=== PATIENT | male | born 1960 | race Hispanic/Latino ===

== ENCOUNTER 2017-04-05 21:01 | Observation (INO) | payer BC ==
[2017-04-05] MEDS ORDERED: Sodium Chloride 0.9% 1,000 ML IV ONE (21:14)
[2017-04-05 21:15] VITALS: BMI 37.3
[2017-04-05 21:18] VITALS: TEMP 97.6; O2SAT 97
--- NOTE | 2017-04-05 21:21 | C.PDOC ---
History Of Present Illness Patient BIBA for possible narcotic overdose. Apparently patient's roommate call 911 after patient fell at home, looking lethargic. 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 Patient given 0.8mg Narcan in the field asnd responded. He arrives to ED appearing drowsy but awake , states he got what he thought was fentanyl or dilaudid from work and injected it himself, admits to doing this previously. Time Seen by Provider: 04/05/17 21:04 Chief Complaint (Nursing): Substance Abuse History Per: EMS History/Exam Limitations: clinical condition Onset/Duration Of Symptoms: Unknown Modifying Factor(s): Narcotics Severity: Moderate Involuntary Hold By: Emergency Physician Past Medical History Reviewed: Historical Data, Nursing Documentation, Vital Signs Vital Signs: Last Vital Signs Temp 97.6 F 04/05/17 21:11 Pulse 50 L 04/06/17 01:13 Resp 16 04/06/17 01:13 BP 125/75 04/06/17 01:13 Pulse Ox 97 04/06/17 02:14 - Medical History PMH: HTN Surgical History: No Surg Hx - [facility] Procedures RESECTION OF APPENDIX, PERCUTANEOUS ENDOSCOPIC APPROACH (12/10/15) Family History: States: Unknown Family Hx - Social History Hx Alcohol Use: No Hx Substance Use: No - Immunization History Hx Tetanus Toxoid Vaccination: Yes Hx Influenza Vaccination: Yes Hx Pneumococcal Vaccination: Yes Review Of Systems Except As Marked, All Systems Reviewed And Found Negative. Cardiovascular: Negative for: Chest Pain, Palpitations Respiratory: Positive for: Cough. Negative for: Shortness of Breath Gastrointestinal: Negative for: Nausea, Vomiting, Abdominal Pain, Diarrhea Psych: Positive for: Other (fentanyl/dilaudid use) Physical Exam - Physical Exam Appears: Well, Non-toxic, Other (awake, alert, drowsy appearing ) Skin: Other (multiple track meehan/injection sites notes on B/L lower extremities ) Head: Atraumatic, Normacephalic Eye(s): bilateral: PERRL (approx 4-5mm B/L and sluggish (after narcan)), EOMI Oral Mucosa: Moist Cardiovascular: Rhythm Regular Respiratory: Normal Breath Sounds, No Rales, No Rhonchi, No Wheezing Gastrointestinal/Abdominal: Normal Exam, Bowel Sounds, Soft, No Tenderness Neurological/Psych: Other (awake, alert, drowsy/under influence, moving all 4 extremities spontaneously) ED Course And Treatment - Laboratory Results Result Diagrams: 04/05/17 21:55 04/05/17 21:55 ECG: Interpreted By Me, Viewed By Me (sinus bradycardia 54 bpm, normal axis, RBBB, no acute ST/T wave changes) ECG Interpretation: No Acute Changes O2 Sat by Pulse Oximetry: 97 (RA) Pulse Ox Interpretation: Normal Progress Note: Blood work, UA, UDS, EKG ordered and reviewed. Patient given IV NS bolus & placed in ED observation. 12:10am- Patient reassessed, arousable to verbal stimuli, vitals stable. Pending sobriety/reassessment. 2:15am - Patient is currently AAOx3, ambulating normally in the ED. He is clinically sober at this time, and requesting to be discharged. He denies SI/HI, depression. Patient instructed to follow up with PMD/clinic in 1-2 days, and understands he should return to ED if he develops any concerning symptoms. Reevaluation Time: 02:15 Reassessment Condition: Improved Disposition Counseled Patient/Family Regarding: Studies Performed, Diagnosis, Need For Followup - Disposition Disposition: HOME/ ROUTINE Disposition Time: 02:15 Condition: STABLE - POA Present On Arrival: None - Clinical Impression Clinical Impression: Narcotic drug use
[2017-04-05 21:59] LABS: BASO % 0.4 % (0.0-2.0); EOS # 0.3 K/uL (0.0-0.7); EOS % 3.2 % (0.0-4.0); HEMATOCRIT 43.5 % (35.0-51.0); LYMPH # 2.7 K/uL (1.0-4.3); LYMPH % 32.4 % (20.0-40.0); MEAN CELL VOLUME 86.9 fL (80.0-94.0); MEAN CORPUSCULAR HEMOGLOBIN 28.9 pg (27.0-31.0); MEAN CORPUSCULAR HGB CONC 33.2 g/dL (33.0-37.0); MEAN PLATELET VOLUME 7.7 fL (7.2-11.7); MONO # 0.6 K/uL (0.0-0.8); MONO % 6.9 % (0.0-10.0); RED CELL DISTRIBUTION WIDTH 13.8 % (11.5-14.5); WHITE BLOOD COUNT 8.3 K/uL (4.8-10.8)
[2017-04-05 22:10] LABS: ALB/GLOB RATIO 1.3 (1.0-2.1); ALCOHOL SERUM < 10 mg/dl (0-10); ALKALINE PHOSPHATASE 61 U/L (38-126); ALT/SGPT 35 U/L (21-72); AST/SGOT 27 U/L (17-59); BILIRUBIN,TOTAL 0.5 mg/dL (0.2-1.3); BLOOD UREA NITROGEN 24 mg/dL (9-20); CALCIUM 9.6 mg/dl (8.6-10.4); CARBON DIOXIDE 28 mmol/L (22-30); CHLORIDE 95 mmol/L (98-107); GFR AFRICAN-AMERICAN > 60; GLUCOSE,RANDOM 94 mg/dL (75-110); POTASSIUM 3.4 mmol/L (3.6-5.2); SODIUM 136 mmol/L (132-148); TOTAL PROTEIN 6.8 g/dL (6.3-8.3)
[2017-04-05 22:11] LABS: RBC URINE < 1 /hpf (0-3); URINE BILIRUBIN NEGATIVE (NEGATIVE); URINE BLOOD NEGATIVE (NEGATIVE); URINE COLOR Yellow (YELLOW); URINE GLUCOSE (UA) 1+ mg/dL (Normal); URINE KETONE NEGATIVE (NEGATIVE); URINE LEUKOCYTE ESTERASE NEG Leu/uL (Negative); URINE PROTEIN NEGATIVE (NEGATIVE); URINE UROBILINOGEN NORMAL mg/dL (0.2-1.0)
[2017-04-06 01:35] VITALS: BP 125/75; PULSE 50; RESP 16
--- NOTE | 2017-04-10 18:52 | CARD ---
APPROVED REPORT EKG Measurement Heart [id number] HI [id number] <Conclusion> Sinus bradycardia Incomplete right bundle branch block Abnormal ECG
== END 2017-04-06 02:16 | disposition home or self-care (01) ==
LOC: C.ER 21:01 → C.9OBSV 22:46
PROVIDERS: ADMIT Emergency Medicine; ATTEND Emergency Medicine
DX: F11.10 Opioid abuse, uncomplicated (principal); R53.83 Other fatigue; R40.0 Somnolence; I10 Essential (primary) hypertension
CPT/HCPCS: 80053; 81001; 85025; 96360; 99284; G0378; G0480

== ENCOUNTER 2018-07-11 02:09 | Inpatient (IN) | payer BC, MEDICAID ==
[2018-07-11 02:09] VITALS: BMI 37.3
[2018-07-11] MEDS ORDERED: Heparin25000 units/250ml 1/2NS 25,000 UNITS/250 ML BAG IV PRN (02:18)
[2018-07-11] MEDS ORDERED: Morphine 4 MG/ML VIAL ONE (02:20)
--- NOTE | 2018-07-11 02:21 | C.PDOC ---
History Of Present Illness patient woke up with severe chest pain, diaphoretic, Pt is non compliant with his bp meds and still smokes. No acls was available, Pt did receive 324 mg asa en route. Time Seen by Provider: 07/11/18 02:18 Chief Complaint (Nursing): Chest Pain History Per: Patient History/Exam Limitations: no limitations Onset/Duration Of Symptoms: Hrs Current Symptoms Are (Timing): Still Present Context: Other Severity: Severe Pain Scale Rating Of: 9 Quality: Sharp, Tightness, Pressure Associated Symptoms: Nausea Modifying Factors: None Alleviating Factors: None Recent travel outside of the [place]: No Additional History Per: Patient Past Medical History Reviewed: Historical Data, Nursing Documentation, Vital Signs - Medical History PMH: HTN Denies: Chronic Kidney Disease - [facility] Procedures RESECTION OF APPENDIX, PERCUTANEOUS ENDOSCOPIC APPROACH (12/10/15) Family History: States: No Known Family Hx - Social History Hx Alcohol Use: No Hx Substance Use: No - Immunization History Hx Tetanus Toxoid Vaccination: Yes Hx Influenza Vaccination: Yes Hx Pneumococcal Vaccination: Yes Review Of Systems Constitutional: Positive for: Sweats. Negative for: Fever, Chills Eyes: Negative for: Vision Change ENT: Negative for: Throat Pain Cardiovascular: Positive for: Chest Pain Respiratory: Negative for: Shortness of Breath Gastrointestinal: Positive for: Nausea. Negative for: Abdominal Pain Genitourinary: Negative for: Dysuria Musculoskeletal: Negative for: Back Pain Skin: Negative for: Rash Neurological: Negative for: Weakness Psych: Negative for: Anxiety Physical Exam - Physical Exam Appears: In Acute Distress Skin: Diaphoretic, Pale Head: Normacephalic Eye(s): bilateral: Normal Inspection Oral Mucosa: Moist Neck: Supple Chest: Symmetrical Cardiovascular: Rhythm Regular Respiratory: No Rales, Rhonchi, No Wheezing Back: Normal Inspection Extremity: Normal ROM Extremity: Bilateral: Atraumatic Pulses: Left Dorsalis Pedis: Normal, Right Dorsalis Pedis: Normal Neurological/Psych: Oriented x3 Gait: Unable To Assess ED Course And Treatment - Laboratory Results Result Diagrams: 07/11/18 02:22 12 02:22 ECG: Interpreted By Me, Viewed By Me ECG Rhythm: Sinus Rhythm, ST/T Changes (ant lat mi) O2 Sat by Pulse Oximetry: 94 Pulse Ox Interpretation: Normal - Radiology CXR: Interpreted by Me, Viewed By Me CXR Interpretation: Yes: Other (acute pulm edema). No: Infiltrates, Fracture Progress Note: 2:[address] ross and sent ekg - code heart activated. 2:20 pt feels slightly better, less diaphoretic. spoke with dr farley -admit to hospitalist Critical Care Time - Critical Care Note Total Time (in mins): 30 Documented critical care: time excludes all time spent performing seperately billable procedures. Disposition Discussed With DrEliseo: Myron Heard Comment: accepted the pt on his service and took over the care at 2:50 AM Doctor Will See Patient In The: ED Counseled Patient/Family Regarding: Studies Performed, Diagnosis - Disposition Referrals: Miguel Farley MD [Primary Care Provider] - Disposition: HOSPITALIZED Disposition Time: 02:18 Condition: CRITICAL Forms: [facility] (Spanish) - POA Present On Arrival: Poor Glycemic Control - Clinical Impression Clinical Impression: Acute IN Decision To Admit - Pt Status Changed To: Hospital Disposition Of: Inpatient - Admit Certification Admit to Inpatient:: After my assessment, the patient will require hospitalization for at least two midnights. This is because of the severity of symptoms shown, intensity of services needed, and/or the medical risk in this patient being treated as an outpatient. - InPatient: Physician Admission Certification: I certify that this patient requires 2 or more midnights of care for the following reason:: After my assessment, the patient will require hospitalization for at least two midnights. This is becaus e of the severity of symptoms shown, intensity of services needed, and/or the medical risk in this patient being treated as an outpatient. - . Bed Request Type: ICU Admitting Physician: Myron Heard Patient Diagnosis: Acute IN
[2018-07-11 02:27] LABS: BASO # 0.1 K/uL (0.0-0.2); BASO % 0.8 % (0.0-2.0); EOS # 0.3 K/uL (0.0-0.7); EOS % 2.9 % (0.0-4.0); HEMOGLOBIN 17.3 g/dL (12.0-18.0); LYMPH # 3.7 K/uL (1.0-4.3); MEAN CELL VOLUME 88.6 fL (80.0-94.0); MEAN CORPUSCULAR HEMOGLOBIN 29.9 pg (27.0-31.0); MEAN CORPUSCULAR HGB CONC 33.7 g/dL (33.0-37.0); MEAN PLATELET VOLUME 7.7 fL (7.2-11.7); MONO # 0.9 K/uL (0.0-0.8); MONO % 8.4 % (0.0-10.0); NEUT # 5.8 K/uL (1.8-7.0); NEUT % 53.9 % (50.0-75.0); RBC 5.78 Mil/uL (4.40-5.90); RED CELL DISTRIBUTION WIDTH 14.3 % (11.5-14.5); WHITE BLOOD COUNT 10.8 K/uL (4.8-10.8)
[2018-07-11 02:34] LABS: PROTHROMBIN TIME 11.1 SECONDS (9.7-12.2)
[2018-07-11] MEDS ORDERED: Nitroglycerin 50mg in D5W 50 MG/250 ML BOTTLE IV ONE ×2 (02:35→04:16)
[2018-07-11 02:40] LABS: ALB/GLOB RATIO 1.5 (1.0-2.1); ALBUMIN 4.9 g/dL (3.5-5.0); ALT/SGPT 36 U/L (21-72); AST/SGOT 33 U/L (17-59); BLOOD UREA NITROGEN 26 mg/dL (9-20); CALCIUM 9.5 mg/dl (8.6-10.4); GFR NON-AFRICAN AMERICAN 52; HDL CHOLESTEROL 47 mg/dL (30-70)
[2018-07-11 02:48] LABS: B-TYPE NATRIURETIC PEPTIDE 85.7 pg/mL (0-900); CK-MB 3.78 ng/mL (0.0-3.38)
[2018-07-11 02:51] LABS: LDL CHOLESTEROL 146 mg/dL (0-129)
[2018-07-11] MEDS ORDERED: Iodixanol 320 MG/ML 200 ML BOTTLE IV ONE (02:54)
[2018-07-11] MEDS ORDERED: Midazolam 2 MG/2 ML VIAL ONE (03:08)
--- NOTE | 2018-07-11 03:13 | CP.PCM.HP ---
<Frank Becerra - Last Filed: 07/11/18 07:46> History of Present Illness - History of Present Illness History of Present Illness: PGY1 History and physical for Hospitalist This is a 57 year old male with PMH of HTN, DM2, Hypercholesterolemia who presents to ED with worsening chest pain and shortness of breath since 1130 tonight (07/10). Pt states that he was laying in bed when the pain started. It's described as sharp, left sided chest pain, that radiates to the left upper back and left shoulder, associated with shortness of breath that is worse with deep inspiration. Pt states that he had similar pain, not as severe, a few months ago when he was hospitalized but was only told that he had a high potassium level, which resolved. Pt denies fever, chills, abdominal pain, n/v/d, leg pain or swelling, recent travel, recent illness. Pt received 324 mg of ASA en route to the ED. EKG on arrival shows ST elevations in anteroseptal leads with reciprocal ST depressions in inferior leads. Code heart was called. Pt was taken to minilab operator with Dr. Brasher. PMD: Miguelito PMH: HTN, DM2, Hypercholesterolemia PSH: appendectomy 2016 Meds: none Allx: NKDA FHx: mother and father with diabetes SHx: (+) smoking, denies illicit drug use for the past 10 years, but has history of documented IVDA 1 year ago. Denies etoh for the past 10 years. Present on Admission - Present on Admission Any Indicators Present on Admission: No Review of Systems - Review of Systems All systems: reviewed and no additional remarkable complaints except (as per HPI) Past Patient History - Infectious Disease Hx of Infectious Diseases: None - Past Medical History & Family History Past Medical History?: Yes - Past Social History Smoking Status: Heavy Smoker > 10 Cigarettes Daily - CARDIAC Hx Hypertension: Yes - PULMONARY Hx Respiratory Disorders: No - NEUROLOGICAL Hx Neurological Disorder: No - HEENT Hx HEENT Problems: No - RENAL Hx Chronic Kidney Disease: No - ENDOCRINE/METABOLIC Hx Endocrine Disorders: No - HEMATOLOGICAL/ONCOLOGICAL Hx Blood Disorders: No - INTEGUMENTARY Hx Dermatological Problems: No - MUSCULOSKELETAL/RHEUMATOLOGICAL Hx Musculoskeletal Disorders: No Hx Falls: No - GASTROINTESTINAL Hx Gastrointestinal Disorders: No - GENITOURINARY/GYNECOLOGICAL Hx Genitourinary Disorders: No - PSYCHIATRIC Hx Substance Use: No - SURGICAL HISTORY Hx Appendectomy: Yes Other/Comment: when he was young as per patient - ANESTHESIA Hx Anesthesia: Yes Hx Anesthesia Reactions: No Hx Malignant Hyperthermia: No Meds Allergies/Adverse Reactions: Allergies Allergy/AdvReac Type Severity Reaction Status Date / Time No Known Allergies Allergy Verified 07/11/18 02:15 Physical Exam - Constitutional Appears: In Acute Distress - Head Exam Head Exam: ATRAUMATIC, NORMAL INSPECTION - Eye Exam Eye Exam: EOMI, Normal appearance - ENT Exam ENT Exam: Mucous Membranes Moist - Respiratory Exam Respiratory Exam: Clear to Auscultation Bilateral. absent: Decreased Breath Sounds, Rales, Rhonchi, Wheezes - Cardiovascular Exam Cardiovascular Exam: Tachycardia, REGULAR RHYTHM, +S1, +S2 - GI/Abdominal Exam GI & Abdominal Exam: Normal Bowel Sounds, Soft. absent: Distended, Firm, Guarding, Rigid, Tenderness - Extremities Exam Extremities exam: Positive for: normal capillary refill, normal inspection, pedal pulses present. Negative for: calf tenderness, pedal edema - Back Exam Back exam: NORMAL INSPECTION - Neurological Exam Neurological exam: Alert, Oriented x3 - Psychiatric Exam Psychiatric exam: Anxious, Normal Affect, Normal Mood - Skin Skin Exam: Diaphoretic, Intact, Normal Color Results - Vital Signs Recent Vital Signs: Last Vital Signs Temp 98.6 F 07/11/18 02:15 Pulse 77 07/11/18 02:15 Resp 18 07/11/18 02:15 BP 200/115 H 07/11/18 02:15 Pulse Ox 94 L 07/11/18 02:54 - Labs Result Diagrams: 07/11/18 05:34 07/11/18 05:34 Labs: Laboratory Results - last 24 hr 07/11/18 07/11/18 07/11/18 02:22 02:22 02:22 WBC 10.8 RBC 5.78 Hgb 17.3 D Hct 51.3 H MCV 88.6 MCH 29.9 MCHC 33.7 RDW 14.3 Plt Count 277 MPV 7.7 Neut % (Auto) 53.9 Lymph % (Auto) 34.0 Lawrence % (Auto) 8.4 Eos % (Auto) 2.9 Baso % (Auto) 0.8 Neut # (Auto) 5.8 Lymph # (Auto) 3.7 Lawrence # (Auto) 0.9 H Eos # (Auto) 0.3 Baso # (Auto) 0.1 PT 11.1 INR 1.0 APTT 34 Sodium 139 Potassium 3.9 Chloride 101 Carbon Dioxide 23 Anion Gap 18 BUN 26 H Creatinine 1.4 Est GFR ( Amer) > 60 Est GFR (Non-Af Amer) 52 POC Glucose (mg/dL) Random Glucose 157 H Hemoglobin A1c Calcium 9.5 Phosphorus 2.2 L Magnesium 2.1 Total Bilirubin 0.3 AST 33 ALT 36 Alkaline Phosphatase 82 Total Creatine Kinase 233 H CK-MB (Mass) 3.78 H NT-Pro-B Natriuret Pep 85.7 Total Protein 8.1 Albumin 4.9 Globulin 3.2 Albumin/Globulin Ratio 1.5 Triglycerides 362 H Cholesterol 239 H LDL Cholesterol Direct 146 H HDL Cholesterol 47 07/11/18 07/11/18 02:24 02:28 WBC RBC Hgb Hct MCV MCH MCHC RDW Plt Count MPV Neut % (Auto) Lymph % (Auto) Lawrence % (Auto) Eos % (Auto) Baso % (Auto) Neut # (Auto) Lymph # (Auto) Lawrence # (Auto) Eos # (Auto) Baso # (Auto) PT INR APTT Sodium Potassium Chloride Carbon Dioxide Anion Gap BUN Creatinine Est GFR ( Amer) Est GFR (Non-Af Amer) POC Glucose (mg/dL) 154 H Random Glucose Hemoglobin A1c 6.2 Calcium Phosphorus Magnesium Total Bilirubin AST ALT Alkaline Phosphatase Total Creatine Kinase CK-MB (Mass) NT-Pro-B Natriuret Pep Total Protein Albumin Globulin Albumin/Globulin Ratio Triglycerides Cholesterol LDL Cholesterol Direct HDL Cholesterol Assessment & Plan - Assessment and Plan (Free Text) Assessment: This is a 57 year old male with PMH of HTN, DM2, Hypercholesterolemia presents with acute sharp left sided chest pain radiating to the left shoulder and left upper back, associated with SOB. EKG showed stemi in anterolateral leads, with reciprocal changes in inferior leads. Code heart was called and MALIKA x1 placed in LAD due to 95% blockage. Pt admitted to ICU. Plan: Acute STEMI, s/p emergent MALIKA x1 in LAD Cardio, Dr. Brasher, consulted. Recs appreciated LAD: proximal 95% stenosis (Fixed with 3.5 x 18 [place] MALIKA) Brilinta 90 mg PO BID ASA 81 mg PO daily Coreg 6.25 mg PO BID Daily EKG F/u EKG s/p stent, troponin q8h x3, echocardiogram HTN Noted to be hypertensive at 200/115 on admission NTG gtt to keep BP below 150 systolic, hold if SBP<120 Losartan 50 mg PO daily NIDDM2 ISS low Accucheck ACHS COPD/XIMENA Pulmonology, Dr. Flowers, consulted Hypercholesterolemia Crestor 40 mg PO QHS F/u lipid panel in AM Polycythemia HCT noted to be 51.3 on admission Heme/onc, Dr. Stoll, consulted PPX GI: Protonix 40 mg PO daily VTE: heparin 5000u SQ Q12h Diet: HHD Dispo: monitor in ICU s/p LAD MALIKA x1 Case discussed with attending physician, Dr. Félix Becerra PGY1 <Myron Heard - Last Filed: 07/11/18 09:00> Results - Vital Signs Recent Vital Signs: Last Vital Signs Temp 97.6 F 07/11/18 07:45 Pulse 55 L 07/11/18 06:45 Resp 18 07/11/18 07:45 BP 118/67 07/11/18 07:45 Pulse Ox 97 07/11/18 06:15 - Labs Result Diagrams: 07/11/18 05:34 07/11/18 05:34 Labs: Laboratory Results - last 24 hr 07/11/18 07/11/18 07/11/18 02:22 02:22 02:22 WBC 10.8 RBC 5.78 Hgb 17.3 D Hct 51.3 H MCV 88.6 MCH 29.9 MCHC 33.7 RDW 14.3 Plt Count 277 MPV 7.7 Neut % (Auto) 53.9 Lymph % (Auto) 34.0 Lawrence % (Auto) 8.4 Eos % (Auto) 2.9 Baso % (Auto) 0.8 Neut # (Auto) 5.8 Lymph # (Auto) 3.7 Lawrence # (Auto) 0.9 H Eos # (Auto) 0.3 Baso # (Auto) 0.1 PT 11.1 INR 1.0 APTT 34 Sodium 139 Potassium 3.9 Chloride 101 Carbon Dioxide 23 Anion Gap 18 BUN 26 H Creatinine 1.4 Est GFR ( Amer) > 60 Est GFR (Non-Af Amer) 52 POC Glucose (mg/dL) Random Glucose 157 H Hemoglobin A1c Calcium 9.5 Phosphorus 2.2 L Magnesium 2.1 Total Bilirubin 0.3 AST 33 ALT 36 Alkaline Phosphatase 82 Total Creatine Kinase 233 H CK-MB (Mass) 3.78 H Troponin I 0.0690 NT-Pro-B Natriuret Pep 85.7 Total Protein 8.1 Albumin 4.9 Globulin 3.2 Albumin/Globulin Ratio 1.5 Triglycerides 362 H Cholesterol 239 H LDL Cholesterol Direct 146 H HDL Cholesterol 47 Blood Type Antibody Screen 07/11/18 07/11/18 07/11/18 02:24 02:28 03:31 WBC RBC Hgb Hct MCV MCH MCHC RDW Plt Count MPV Neut % (Auto) Lymph % (Auto) Lawrence % (Auto) Eos % (Auto) Baso % (Auto) Neut # (Auto) Lymph # (Auto) Lawrence # (Auto) Eos # (Auto) Baso # (Auto) PT INR APTT Sodium Potassium Chloride Carbon Dioxide Anion Gap BUN Creatinine Est GFR ( Amer) Est GFR (Non-Af Amer) POC Glucose (mg/dL) 154 H Random Glucose Hemoglobin A1c 6.2 Calcium Phosphorus Magnesium Total Bilirubin AST ALT Alkaline Phosphatase Total Creatine Kinase CK-MB (Mass) Troponin I NT-Pro-B Natriuret Pep Total Protein Albumin Globulin Albumin/Globulin Ratio Triglycerides Cholesterol LDL Cholesterol Direct HDL Cholesterol Blood Type B NEGATIVE Antibody Screen Negative 07/11/18 07/11/18 07/11/18 05:34 05:34 05:34 WBC 10.3 RBC 5.37 Hgb 15.7 Hct 46.3 MCV 86.3 D MCH 29.3 MCHC 34.0 RDW 14.3 Plt Count 241 MPV 7.6 Neut % (Auto) 77.0 H Lymph % (Auto) 17.1 L Lawrence % (Auto) 5.2 Eos % (Auto) 0.4 Baso % (Auto) 0.3 Neut # (Auto) 8.0 H Lymph # (Auto) 1.8 Lawrence # (Auto) 0.5 Eos # (Auto) 0.0 Baso # (Auto) 0.0 PT INR APTT Sodium 136 Potassium 4.1 Chloride 101 Carbon Dioxide 22 Anion Gap 17 BUN 28 H Creatinine 1.2 Est GFR ( Amer) > 60 Est GFR (Non-Af Amer) > 60 POC Glucose (mg/dL) Random Glucose 143 H Hemoglobin A1c 6.1 Calcium 9.0 Phosphorus 2.8 Magnesium 2.1 Total Bilirubin 0.4 AST 136 H D ALT 40 Alkaline Phosphatase 69 Total Creatine Kinase 1034 H CK-MB (Mass) 62.4 H Troponin I 19.3000 H* NT-Pro-B Natriuret Pep Total Protein 7.1 Albumin 4.4 Globulin 2.8 Albumin/Globulin Ratio 1.6 Triglycerides 153 H D Cholesterol 202 H LDL Cholesterol Direct 142 H HDL Cholesterol 47 Blood Type Antibody Screen 07/11/18 07/11/18 05:34 07:32 WBC RBC Hgb Hct MCV MCH MCHC RDW Plt Count MPV Neut % (Auto) Lymph % (Auto) Lawrence % (Auto) Eos % (Auto) Baso % (Auto) Neut # (Auto) Lymph # (Auto) Lawrence # (Auto) Eos # (Auto) Baso # (Auto) PT INR APTT Sodium Potassium Chloride Carbon Dioxide Anion Gap BUN Creatinine Est GFR ( Amer) Est GFR (Non-Af Amer) POC Glucose (mg/dL) 118 H Random Glucose Hemoglobin A1c Calcium Phosphorus Magnesium Total Bilirubin AST ALT Alkaline Phosphatase Total Creatine Kinase 991 H CK-MB (Mass) 63.1 H Troponin I 19.0000 H* NT-Pro-B Natriuret Pep Total Protein Albumin Globulin Albumin/Globulin Ratio Triglycerides Cholesterol LDL Cholesterol Direct HDL Cholesterol Blood Type Antibody Screen Attending/Attestation - Attestation I have personally seen and examined this patient.: Yes I have fully participated in the care of the patient.: Yes I have reviewed all pertinent clinical information: Yes Notes (Text): 07/11/18 08:36 I saw and examined this patient with Dr becerra. I agree with the Assessment and plan outlined above. This is a 57 years male with hx of HTN, comes to the ED with acute severe left chest pain radiating to the left shoulder, associated with diaphoresis. The EKG showed sign of Bry-Septal Infarction. Code Heart was called, Heparin IV drip and Nitroglycerine IV drip were started in the ED after the patient received Brilinta, Aspirin and Morphine. The Ball Warper Tender was consulted and the patient was taken to the Catherization lab for PCI. Cardiac Catheterization 07/11/18 1. L Main: Patent 2. LAD: proximal 95% stenosis ; stent Placed 3. L Cx: Patent 4. RCA: Dominant and patent 5. LV: Anterolateral hypo. EF 50%, 6. Anterolateral wall Hypokinesis Patient transferred to ICU Continue Aspirin, Brilinta,Crestor, Tridil, coreg. Treat prediabetes HbA1c of 6.2 Myron Heard MD
[2018-07-11] MEDS ORDERED: Labetalol 5mg/ml (4ml) ONE (03:29)
--- NOTE | 2018-07-11 04:04 | CP.PCM.PN ---
Subjective - Date & Time of Evaluation Date of Evaluation: 07/11/18 Time of Evaluation: 03:59 - Subjective Subjective: 57 M with Hx of HTN presented with Acute Anterolateral STEMI S/P Cardiac cath and emergent LAD MALIKA placement 1. L Main: Patent 2. LAD: proximal 95% stenosis (Fixed with 3.5 x 18 [place] MALIKA) 3. L Cx: Patent 4. RCA: Dominant and patent 5. LV: Anterolateral hypo. EF 50%, EDP 36, No A/P: S/P Code heart\Post AR and medical management Orders d/w medical orderly and the RN Objective - Vital Signs/Intake and Output Vital Signs (last 24 hours): Temp Pulse Resp BP Pulse Ox 98.6 F 90 18 156/93 H 94 L 07/11/18 02:15 07/11/18 02:47 07/11/18 02:47 07/11/18 02:47 07/11/18 02:54 - Medications Medications: Current Medications Nitroglycerin/Dextrose (Nitroglycerin 50 Mg/250 Ml D5w) 50 mg in 250 mls @ 3 mls/hr IV .Q24H ONE Stop: 07/12/18 02:34 Heparin Sodium/Sodium Chloride (Heparin 86513 Units/250ml 1/2 Normal Saline) 25,000 units in 250 mls @ 9.049 mls/hr IV .Q24H PRN; Protocol PRN Reason: PROTOCOL - Labs Labs: 07/11/18 02:22 07/11/18 02:22 PT 11.1 SECONDS (9.7-12.2) 07/11/18 02:22 INR 1.0 07/11/18 02:22 APTT 34 SECONDS (21-34) 07/11/18 02:22
[2018-07-11] MEDS ORDERED: Glucagon Recombinant 1 mg Inj IM PRN (04:12)
[2018-07-11] MEDS ORDERED: Dextrose 50% SYRINGE Inj (50 ml) IV PRN (04:12)
[2018-07-11] MEDS ORDERED: Sodium Chloride 0.45% 1,000 ML IV SCH (04:15)
--- NOTE | 2018-07-11 05:41 | CARDCATH ---
PROCEDURE DATE: 07/11/2018 PROCEDURES: 1. Left heart catheterization. 2. Coronary angiogram. 3. Left anterior descending coronary artery, balloon angioplasty, and drug-eluting stent placement. CLINICAL INDICATIONS: 1. Chest pain. 2. Acute anterolateral wall ST elevation myocardial infarction. 3. Hypertension. 4. Diabetes. 5. Hyperlipidemia. 6. Polycythemia. REFERRING PHYSICIAN: PERFORMING PHYSICIAN: Mj Brasher MD BRIEF CLINICAL HISTORY: Jacinto Gilbert is a 57-year-old gentleman with history of hypertension, noncompliant, presented to [facility] Emergency Room with severe substernal crushing chest pressure. Subsequent EKG has revealed the patient has acute anterolateral wall ST elevation myocardial infarction. Code heart was activated. The patient received 180 mg of Brilinta, aspirin 325 mg, and IV heparin. DESCRIPTION OF PROCEDURE: After informed consent, the patient was prepped and draped in the usual sterile fashion. Lidocaine 2% was given on the right groin for local anesthesia. Using micropuncture technique, a 6-Norwegian sheath was introduced into the right common femoral artery. The patient's ACT was maintained about 250 throughout the procedure. One bolus of Integrilin was given. Since the patient has severe hypertension, the patient was started on nitroglycerin drip. XB LAD 3.5 guide catheter was engaged into left main coronary artery. Contrast injected and left coronary angiogram was done. Left main coronary artery is patent. Left circumflex and obtuse marginal branches are patent. However, LAD has a proximal 95% stenosis with thrombus noted. Distal LAD is patent. Diagonal branches are patent. LAD threaded with run-through coronary wire. The proximal 95% LAD stenosis predilated using 2.25 x 15 compliant balloon. Then stented with 3.5 x 18 Resolute Bishnu drug-eluting stent. Excellent final angiographic results with brisk IVONNE-3 flow noted. The catheter was exchanged to JR4 6-Norwegian diagnostic catheter. The catheter engaged into left ventricle. LV end diastolic pressure measured. LVEDP is 36. Contrast injected and LV angiogram was done. LV ejection fraction is approximately 50%. Anterolateral wall hypokinesis. There were no radiant across the aortic valve. The catheter was pulled back and engaged into right coronary artery. Contrast injected and right coronary angiogram was done. Right coronary artery is dominant and patent. Postprocedure, right groin hemostasis accomplished using Perclose suture device. The patient tolerated the procedure well. The patient will be transferred to intensive care unit for further management. Mj Brasher MD
[2018-07-11 05:44] LABS: BASO % 0.3 % (0.0-2.0); EOS % 0.4 % (0.0-4.0); HEMOGLOBIN 15.7 g/dL (12.0-18.0); LYMPH # 1.8 K/uL (1.0-4.3); LYMPH % 17.1 % (20.0-40.0); MEAN CORPUSCULAR HEMOGLOBIN 29.3 pg (27.0-31.0); MEAN PLATELET VOLUME 7.6 fL (7.2-11.7); MONO # 0.5 K/uL (0.0-0.8); MONO % 5.2 % (0.0-10.0); NRBC % 0.1 % (0.0-2.0); RBC 5.37 Mil/uL (4.40-5.90); RED CELL DISTRIBUTION WIDTH 14.3 % (11.5-14.5); WHITE BLOOD COUNT 10.3 K/uL (4.8-10.8)
[2018-07-11 05:48] LABS: MEAN CELL VOLUME 86.3 fL (80.0-94.0)
[2018-07-11 06:25] LABS: LDL CHOLESTEROL 142 mg/dL (0-129)
[2018-07-11 06:43] LABS: CK-MB 63.1 ng/mL (0.0-3.38)
[2018-07-11 06:45] LABS: ALB/GLOB RATIO 1.6 (1.0-2.1); ALBUMIN 4.4 g/dL (3.5-5.0); ALT/SGPT 40 U/L (21-72); AST/SGOT 136 U/L (17-59); BLOOD UREA NITROGEN 28 mg/dL (9-20); CK-MB 62.4 ng/mL (0.0-3.38); GFR NON-AFRICAN AMERICAN > 60; HDL CHOLESTEROL 47 mg/dL (30-70)
--- NOTE | 2018-07-11 07:36 | CP.PCM.CON ---
History of Present Illness - History of Present Illness History of Present Illness: Chief complaint: Chest pain, post code heart HPI: 57-year-old male with a history of hypertension diabetes high cholesterol and also smoker brought in by the ambulance because of the worsening chest pain and shortness of breath started at midnight. Patient suddenly developed chest pain, radiating to the left upper back and left shoulder and with the shortness of breath and associated with the worsening pain on deep respiration He was recently hospitalized with abnormal potassium level in the past. Patient was given aspirin EKG showing evidence of ST elevation and immediately was taken to the [facility]. Patient has a history of hypertension diabetes high cholesterol. He had a history of appendectomy Currently he is not taking any medication No known drug allergies Family history of diabetes Patient is a smoker almost one pack per day he denies any alcohol Review of system: Mild headache noted. He is currently comfortably sleeping No chest pain. Denies any nausea vomiting. On examination: Vital signs stable. Mild bradycardia noted. Chest good air entry Regular heart sound Nontender abdomen. Patient's labs reviewed Elevated troponin level noted. EKG showing ST changes. Patient underwent angiogram, and the proximal LAD entry percent occlusion noted, stented with a drug-eluting stent Assessment: 57-year-old male with history of diabetes hypertension high cholesterol admitted to the hospital with acute ST elevation SC. Status post stent. Post stent management now. Antiplatelets aspirin and also beta blockers. cardiology follow-up. Echocardigam. Icu monitor. Past Patient History - Infectious Disease Hx of Infectious Diseases: None - Past Medical History & Family History Past Medical History?: Yes - Past Social History Smoking Status: Heavy Smoker > 10 Cigarettes Daily - CARDIAC Hx Hypertension: Yes - PULMONARY Hx Respiratory Disorders: No - NEUROLOGICAL Hx Neurological Disorder: No - HEENT Hx HEENT Problems: No - RENAL Hx Chronic Kidney Disease: No - ENDOCRINE/METABOLIC Hx Endocrine Disorders: No - HEMATOLOGICAL/ONCOLOGICAL Hx Blood Disorders: No - INTEGUMENTARY Hx Dermatological Problems: No - MUSCULOSKELETAL/RHEUMATOLOGICAL Hx Musculoskeletal Disorders: No Hx Falls: No - GASTROINTESTINAL Hx Gastrointestinal Disorders: No - GENITOURINARY/GYNECOLOGICAL Hx Genitourinary Disorders: No - PSYCHIATRIC Hx Substance Use: No - SURGICAL HISTORY Hx Appendectomy: Yes Other/Comment: when he was young as per patient - ANESTHESIA Hx Anesthesia: Yes Hx Anesthesia Reactions: No Hx Malignant Hyperthermia: No Meds Allergies/Adverse Reactions: Allergies Allergy/AdvReac Type Severity Reaction Status Date / Time No Known Allergies Allergy Verified 07/11/18 02:15 - Medications Medications: Current Medications Acetaminophen (Tylenol 325mg Tab) 650 mg PO Q6 PRN PRN Reason: Pain, Mild (1-3) Aspirin (Ecotrin) 81 mg PO DAILY [facility] Carvedilol (Coreg) 6.25 mg PO BID [facility] Dextrose (Dextrose 50% Inj) 0 ml IV STAT PRN; Protocol PRN Reason: Hypoglycemia Protocol Dextrose (Glutose 15) 0 gm PO ONCE PRN; Protocol PRN Reason: Hypoglycemia Protocol Glucagon (Glucagen Diagnostic Kit) 0 mg IM STAT PRN; Protocol PRN Reason: Hypoglycemia Protocol Heparin Sodium (Porcine) (Heparin) 5,000 units SC Q12 [facility] Sodium Chloride (Sodium Chloride 0.45%) 1,000 mls @ 70 mls/hr IV .[id number] [facility] Stop: 07/11/18 16:00 Last Admin: 07/11/18 04:20 Dose: 70 mls/hr Dextrose (Dextrose 5% In Water 1000 Ml) 1,000 mls @ 0 mls/hr IV .Q0M PRN; Protocol PRN Reason: Hypoglycemia Protocol Nitroglycerin/Dextrose (Nitroglycerin 50 Mg/250 Ml D5w) 50 mg in 250 mls @ 9 mls/hr IV .Q24H ONE Stop: 07/12/18 02:34 Last Admin: 07/11/18 04:20 Dose: 9 mls/hr Insulin Human Regular (Novolin R) 0 unit SC ACHS [facility]; Protocol Losartan Potassium (Cozaar) 50 mg PO DAILY [facility] Pantoprazole Sodium (Protonix Ec Tab) 40 mg PO DAILY [facility] Rosuvastatin Calcium (Crestor) 40 mg PO HS [facility] Ticagrelor (Brilinta) 90 mg PO BID [facility] Results - Vital Signs Recent Vital Signs: Last Vital Signs Temp 98.1 F 07/11/18 06:15 Pulse 55 L 07/11/18 06:45 Resp 18 07/11/18 06:45 BP 126/74 07/11/18 06:45 Pulse Ox 97 07/11/18 06:15 - Labs Result Diagrams: 07/11/18 05:34 07/11/18 05:34 Labs: Laboratory Results - last 24 hr 12/08/18 12/08/18 12/08/18 02:22 02:22 02:22 WBC 10.8 RBC 5.78 Hgb 17.3 D Hct 51.3 H MCV 88.6 MCH 29.9 MCHC 33.7 RDW 14.3 Plt Count 277 MPV 7.7 Neut % (Auto) 53.9 Lymph % (Auto) 34.0 Hickman % (Auto) 8.4 Eos % (Auto) 2.9 Baso % (Auto) 0.8 Neut # (Auto) 5.8 Lymph # (Auto) 3.7 Hickman # (Auto) 0.9 H Eos # (Auto) 0.3 Baso # (Auto) 0.1 PT 11.1 INR 1.0 APTT 34 Sodium 139 Potassium 3.9 Chloride 101 Carbon Dioxide 23 Anion Gap 18 BUN 26 H Creatinine 1.4 Est GFR ( Amer) > 60 Est GFR (Non-Af Amer) 52 POC Glucose (mg/dL) Random Glucose 157 H Hemoglobin A1c Calcium 9.5 Phosphorus 2.2 L Magnesium 2.1 Total Bilirubin 0.3 AST 33 ALT 36 Alkaline Phosphatase 82 Total Creatine Kinase 233 H CK-MB (Mass) 3.78 H Troponin I 0.0690 NT-Pro-B Natriuret Pep 85.7 Total Protein 8.1 Albumin 4.9 Globulin 3.2 Albumin/Globulin Ratio 1.5 Triglycerides 362 H Cholesterol 239 H LDL Cholesterol Direct 146 H HDL Cholesterol 47 Blood Type Antibody Screen 07/11/18 07/11/18 07/11/18 02:24 02:28 03:31 WBC RBC Hgb Hct MCV MCH MCHC RDW Plt Count MPV Neut % (Auto) Lymph % (Auto) Hickman % (Auto) Eos % (Auto) Baso % (Auto) Neut # (Auto) Lymph # (Auto) Hickman # (Auto) Eos # (Auto) Baso # (Auto) PT INR APTT Sodium Potassium Chloride Carbon Dioxide Anion Gap BUN Creatinine Est GFR ( Amer) Est GFR (Non-Af Amer) POC Glucose (mg/dL) 154 H Random Glucose Hemoglobin A1c 6.2 Calcium Phosphorus Magnesium Total Bilirubin AST ALT Alkaline Phosphatase Total Creatine Kinase CK-MB (Mass) Troponin I NT-Pro-B Natriuret Pep Total Protein Albumin Globulin Albumin/Globulin Ratio Triglycerides Cholesterol LDL Cholesterol Direct HDL Cholesterol Blood Type B NEGATIVE Antibody Screen Negative 07/11/18 07/11/18 07/11/18 05:34 05:34 05:34 WBC 10.3 RBC 5.37 Hgb 15.7 Hct 46.3 MCV 86.3 D MCH 29.3 MCHC 34.0 RDW 14.3 Plt Count 241 MPV 7.6 Neut % (Auto) 77.0 H Lymph % (Auto) 17.1 L Hickman % (Auto) 5.2 Eos % (Auto) 0.4 Baso % (Auto) 0.3 Neut # (Auto) 8.0 H Lymph # (Auto) 1.8 Hickman # (Auto) 0.5 Eos # (Auto) 0.0 Baso # (Auto) 0.0 PT INR APTT Sodium 136 Potassium 4.1 Chloride 101 Carbon Dioxide 22 Anion Gap 17 BUN 28 H Creatinine 1.2 Est GFR ( Amer) > 60 Est GFR (Non-Af Amer) > 60 POC Glucose (mg/dL) Random Glucose 143 H Hemoglobin A1c 6.1 Calcium 9.0 Phosphorus 2.8 Magnesium 2.1 Total Bilirubin 0.4 AST 136 H D ALT 40 Alkaline Phosphatase 69 Total Creatine Kinase 1034 H CK-MB (Mass) 62.4 H Troponin I 19.3000 H* NT-Pro-B Natriuret Pep Total Protein 7.1 Albumin 4.4 Globulin 2.8 Albumin/Globulin Ratio 1.6 Triglycerides 153 H D Cholesterol 202 H LDL Cholesterol Direct 142 H HDL Cholesterol 47 Blood Type Antibody Screen 07/11/18 05:34 WBC RBC Hgb Hct MCV MCH MCHC RDW Plt Count MPV Neut % (Auto) Lymph % (Auto) Hickman % (Auto) Eos % (Auto) Baso % (Auto) Neut # (Auto) Lymph # (Auto) Hickman # (Auto) Eos # (Auto) Baso # (Auto) PT INR APTT Sodium Potassium Chloride Carbon Dioxide Anion Gap BUN Creatinine Est GFR ( Amer) Est GFR (Non-Af Amer) POC Glucose (mg/dL) Random Glucose Hemoglobin A1c Calcium Phosphorus Magnesium Total Bilirubin AST ALT Alkaline Phosphatase Total Creatine Kinase 991 H CK-MB (Mass) 63.1 H Troponin I 19.0000 H* NT-Pro-B Natriuret Pep Total Protein Albumin Globulin Albumin/Globulin Ratio Triglycerides Cholesterol LDL Cholesterol Direct HDL Cholesterol Blood Type Antibody Screen
[2018-07-11] MEDS: (Novolin R) Insulin Human Regular 100 units/ml vial SC SCH ×4 (07:41→21:26)
--- NOTE | 2018-07-11 09:21 | CP.PCM.PN ---
Subjective - Date & Time of Evaluation Date of Evaluation: 07/11/18 Time of Evaluation: 09:15 - Subjective Subjective: Medical Attending Note: Patient seen and examined. Patient seen with roommate at bedside. Patient denies headache, denies chest pain, denies cough, denies shortness of breathe, denies abdominal pain, denies nausea, denies vomitting. 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 Patient reports history of prediabetes. I did strongly advocate to him he will need to do complete dietary/exercise modifcations/smoking cessation/and weight loss. Patient reports PMD: Dr. Farley. Objective - Vital Signs/Intake and Output Vital Signs (last 24 hours): Temp Pulse Resp BP Pulse Ox 97.6 F 61 20 139/69 95 07/11/18 08:00 07/11/18 08:45 07/11/18 08:45 07/11/18 08:45 07/11/18 08:18 Intake and Output: 07/11/18 07/11/18 06:59 18:59 Intake Total 228 140 Output Total 400 0 Balance -172 140 - Medications Medications: Current Medications Acetaminophen (Tylenol 325mg Tab) 650 mg PO Q6 PRN PRN Reason: Pain, Mild (1-3) Aspirin (Ecotrin) 81 mg PO DAILY [facility] Carvedilol (Coreg) 6.25 mg PO BID [facility] Dextrose (Dextrose 50% Inj) 0 ml IV STAT PRN; Protocol PRN Reason: Hypoglycemia Protocol Dextrose (Glutose 15) 0 gm PO ONCE PRN; Protocol PRN Reason: Hypoglycemia Protocol Glucagon (Glucagen Diagnostic Kit) 0 mg IM STAT PRN; Protocol PRN Reason: Hypoglycemia Protocol Heparin Sodium (Porcine) (Heparin) 5,000 units SC Q12 [facility] Sodium Chloride (Sodium Chloride 0.45%) 1,000 mls @ 70 mls/hr IV .[id number] [facility] Stop: 07/11/18 16:00 Last Admin: 07/11/18 04:20 Dose: 70 mls/hr Dextrose (Dextrose 5% In Water 1000 Ml) 1,000 mls @ 0 mls/hr IV .Q0M PRN; Protocol PRN Reason: Hypoglycemia Protocol Insulin Human Regular (Novolin R) 0 unit SC ACHS [facility]; Protocol Last Admin: 07/11/18 07:41 Dose: Not Given Pantoprazole Sodium (Protonix Ec Tab) 40 mg PO DAILY [facility] Rosuvastatin Calcium (Crestor) 40 mg PO HS [facility] Ticagrelor (Brilinta) 90 mg PO BID [facility] - Labs Labs: 07/11/18 05:34 07/11/18 05:34 PT 11.1 SECONDS (9.7-12.2) 07/11/18 02:22 INR 1.0 07/11/18 02:22 APTT 34 SECONDS (21-34) 07/11/18 02:22 - Constitutional Appears: Non-toxic, No Acute Distress - Head Exam Head Exam: NORMAL INSPECTION - Eye Exam Eye Exam: EOMI - ENT Exam ENT Exam: Mucous Membranes Moist - Respiratory Exam Respiratory Exam: Clear to Ausculation Bilateral, NORMAL BREATHING PATTERN. absent: Rales, Rhonchi, Wheezes - Cardiovascular Exam Cardiovascular Exam: REGULAR RHYTHM, +S1, +S2 - GI/Abdominal Exam GI & Abdominal Exam: Soft, Normal Bowel Sounds. absent: Distended, Firm, Guarding, Rigid, Tenderness, Rebound - Extremities Exam Extremities Exam: absent: Pedal Edema, Tenderness - Neurological Exam Neurological Exam: Alert, Awake, Oriented x3 - Psychiatric Exam Psychiatric exam: Normal Affect, Normal Mood - Skin Skin Exam: Dry, Intact, Normal Color, Warm Assessment and Plan (1) Acute [place] Status: Acute (2) ST elevation Status: Acute (3) Obesity (BMI 30.0-34.9) Status: Acute (4) Smoker Status: Acute (5) Impaired glucose tolerance Status: Acute (6) Hypertension Status: Acute (7) Lipid disorder Status: Acute (8) Prophylactic measure Status: Acute Attending/Attestation - Attestation I have personally seen and examined this patient.: Yes I have fully participated in the care of the patient.: Yes I have reviewed all pertinent clinical information, including history, physical exam and plan: Yes Notes (Text): Patient seen, examined, case discussed with infertility medical assistant. Patient seen status post cardiac catheter requiring emergent LAD MALIKA placement. Had an extensive conversation with patient and found to room air with his permission. Went over diet and lifestyle modifications, smoking cessation, weight loss reduction, and overall change in present health management. 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 Assessment/Plan 1. Acute anterolateral STEMI Cardiology Dr. Brasher on case help appreciated Patient admitted to ICU Per cath report: Left main patent, LAD proximal 95% stenosis, left circumflex patent RCA dominant and patent and LV anterior lateral hypokinesis ejection fraction by 50% EDP 36 with no aortic stenosis. Awaiting echocardiogram. Aspirin 81 mg once a day Coreg 6.25 mg p.o. twice a day Crestor 40 mg once at night Brilinta 90 mg p.o. twice daily Half NS about 70 cc/h until 4:00 today heparin DVT prophylaxis pending echocardiogram 2. Lipid disorder Lipid panel elevated triglycerides, elevated cholesterol, elevated LDL, HDL relatively normal Crestor 40 mg p.o. nightly Diet modification advocated Dietitian referral to be obtained 3. Hypertension smoking cessation provided Diet modification provided Patient is on both the Coreg and IGNACIO inhibitor started during hospitalization. 4. Impaired glucose tolerance Patient does not have history of diabetes, patient reports family history of diabetes Advocated for lifestyle and diet modifications 5. Smoker Advised patient to stop smoking including risks such as premature aging, worsening heart disease, cancer as well as limiting secondary use his roommate is also a current smoker Patient has failed Chantix in the past. But is open to other avenues for sensation Pulmonary on board help appreciated NicoDerm patch advocate advocated 6. Elevated hemoglobin Patient likely was dehydrated on admission hemoglobin is relatively stable will discontinue him on consult 7. Prophylactic measure Heparin DVT prophylaxis Gentle IV hydration Further management per ICU and cardiology.
--- NOTE | 2018-07-11 09:30 | CP.PCM.PN ---
Subjective - Date & Time of Evaluation Date of Evaluation: 07/11/18 Time of Evaluation: 09:27 - Subjective Subjective: Patient feeling better, denies any chest pain Objective - Vital Signs/Intake and Output Vital Signs (last 24 hours): Temp Pulse Resp BP Pulse Ox 97.6 F 61 20 139/69 95 07/11/18 08:00 07/11/18 08:45 07/11/18 08:45 07/11/18 08:45 07/11/18 08:18 Intake and Output: 07/11/18 07/11/18 06:59 18:59 Intake Total 228 140 Output Total 400 0 Balance -172 140 - Medications Medications: Current Medications Acetaminophen (Tylenol 325mg Tab) 650 mg PO Q6 PRN PRN Reason: Pain, Mild (1-3) Aspirin (Ecotrin) 81 mg PO DAILY [facility] Carvedilol (Coreg) 6.25 mg PO BID [facility] Dextrose (Dextrose 50% Inj) 0 ml IV STAT PRN; Protocol PRN Reason: Hypoglycemia Protocol Dextrose (Glutose 15) 0 gm PO ONCE PRN; Protocol PRN Reason: Hypoglycemia Protocol Glucagon (Glucagen Diagnostic Kit) 0 mg IM STAT PRN; Protocol PRN Reason: Hypoglycemia Protocol Heparin Sodium (Porcine) (Heparin) 5,000 units SC Q12 [facility] Dextrose (Dextrose 5% In Water 1000 Ml) 1,000 mls @ 0 mls/hr IV .Q0M PRN; Protocol PRN Reason: Hypoglycemia Protocol Insulin Human Regular (Novolin R) 0 unit SC ACHS [facility]; Protocol Last Admin: 07/11/18 07:41 Dose: Not Given Pantoprazole Sodium (Protonix Ec Tab) 40 mg PO DAILY [facility] Rosuvastatin Calcium (Crestor) 40 mg PO HS [facility] Ticagrelor (Brilinta) 90 mg PO BID [facility] - Labs Labs: 07/11/18 05:34 07/11/18 05:34 PT 11.1 SECONDS (9.7-12.2) 07/11/18 02:22 INR 1.0 07/11/18 02:22 APTT 34 SECONDS (21-34) 07/11/18 02:22 - Head Exam Head Exam: ATRAUMATIC, NORMAL INSPECTION - Eye Exam Eye Exam: EOMI - ENT Exam ENT Exam: Mucous Membranes Moist - Respiratory Exam Respiratory Exam: NORMAL BREATHING PATTERN - Cardiovascular Exam Cardiovascular Exam: REGULAR RHYTHM, +S1, +S2 - GI/Abdominal Exam GI & Abdominal Exam: Normal Bowel Sounds - Extremities Exam Extremities Exam: Normal Inspection - Neurological Exam Neurological Exam: Alert, Awake, Oriented x3 Assessment and Plan - Assessment and Plan (Free Text) Assessment: CAD/NSTEMI: septal T wave changes, continue DAPT, statin, av luther kaylan -PAtient strongely advised to STOP SMOKING. Patient is actively smoking. --OOB to chair -PT/OT -Patient remains hemodynamically stable -change all medications to oral
[2018-07-11] MEDS ORDERED: Pantoprazole 40 mg EC Tab PO SCH (10:00)
--- NOTE | 2018-07-11 12:03 | RAD ---
Date of service: 07/11/2018 HISTORY: code heart bed 5 COMPARISON: CT chest without contrast from 12/11/2015 FINDINGS: LUNGS: The lungs are well inflated. There is severe pulmonary venous congestion. There is also interstitial pulmonary edema. PLEURA: No pleural effusions or pneumothorax. CARDIOVASCULAR: There is mild cardiomegaly. No aortic atherosclerotic calcification present. OSSEOUS STRUCTURES: Within normal limits for the patient's age. VISUALIZED UPPER ABDOMEN: Normal. OTHER FINDINGS: None. IMPRESSION: Findings are most compatible with moderate congestive heart failure.
[2018-07-11 12:27] LABS: CK-MB 98.2 ng/mL (0.0-3.38)
[2018-07-11 12:55] LABS: TROPONIN I 48.6 ng/mL (0.00-0.120)
[2018-07-11 21:04] LABS: CK-MB 74.2 ng/mL (0.0-3.38); TROPONIN I 25.4 ng/mL (0.00-0.120)
[2018-07-12 05:43] LABS: BASO # 0.1 K/uL (0.0-0.2); BASO % 0.5 % (0.0-2.0); EOS # 0.2 K/uL (0.0-0.7); EOS % 1.5 % (0.0-4.0); HEMOGLOBIN 16.3 g/dL (12.0-18.0); LYMPH # 3.5 K/uL (1.0-4.3); LYMPH % 32.3 % (20.0-40.0); MEAN CELL VOLUME 86.1 fL (80.0-94.0); MEAN CORPUSCULAR HEMOGLOBIN 28.9 pg (27.0-31.0); MEAN CORPUSCULAR HGB CONC 33.5 g/dL (33.0-37.0); MEAN PLATELET VOLUME 7.8 fL (7.2-11.7); MONO # 0.7 K/uL (0.0-0.8); MONO % 6.8 % (0.0-10.0); NEUT # 6.3 K/uL (1.8-7.0); NEUT % 58.9 % (50.0-75.0); NRBC % 0.1 % (0.0-2.0); RBC 5.63 Mil/uL (4.40-5.90); WHITE BLOOD COUNT 10.7 K/uL (4.8-10.8)
[2018-07-12 06:06] LABS: ALB/GLOB RATIO 1.5 (1.0-2.1); ALBUMIN 4.2 g/dL (3.5-5.0); ALT/SGPT 48 U/L (21-72); AST/SGOT 158 U/L (17-59); BLOOD UREA NITROGEN 20 mg/dL (9-20); CALCIUM 9.1 mg/dl (8.6-10.4); GFR NON-AFRICAN AMERICAN > 60
[2018-07-12] MEDS: (Novolin R) Insulin Human Regular 100 units/ml vial SC SCH ×4 (08:32→21:32)
--- NOTE | 2018-07-12 11:50 | CP.PCM.PN ---
Subjective - Date & Time of Evaluation Date of Evaluation: 07/12/18 Time of Evaluation: 11:49 - Subjective Subjective: Patient seen and evaluated Denies chest pain and dyspnea LV apical thrombus? ECHO with Contrast study r/o LV thrombus ordered for tomorrow Discharge plan after the repeat ECHO Physical Examination - Constitutional Appears: Non-toxic, No Acute Distress - Head Exam Head Exam: NORMAL INSPECTION - Eye Exam Eye Exam: EOMI - ENT Exam ENT Exam: Mucous Membranes Moist - Respiratory Exam Respiratory Exam: Clear to Ausculation Bilateral, NORMAL BREATHING PATTERN. absent: Rales, Rhonchi, Wheezes - Cardiovascular Exam Cardiovascular Exam: REGULAR RHYTHM, +S1, +S2 - GI/Abdominal Exam GI & Abdominal Exam: Soft, Normal Bowel Sounds. absent: Distended, Firm, Guarding, Rigid, Tenderness, Rebound - Extremities Exam Extremities Exam: absent: Pedal Edema, Tenderness - Neurological Exam Neurological Exam: Alert, Awake, Oriented x3 - Psychiatric Exam Psychiatric exam: Normal Affect, Normal Mood - Skin Skin Exam: Dry, Intact, Normal Color, Warm Assessment and Plan (1) Acute NH Status: Acute (2) ST elevation Status: Acute (3) Obesity (BMI 30.0-34.9) Status: Acute (4) Smoker Status: Acute (5) Impaired glucose tolerance Status: Acute (6) Hypertension Status: Acute (7) Lipid disorder Status: Acute (8) Prophylactic measure Status: Acute Assessment/Plan 1. Acute anterolateral STEMI Left main patent, LAD proximal 95% stenosis, left circumflex patent RCA dominant and patent and LV anterior lateral hypokinesis ejection fraction by 50% EDP 36 with no aortic stenosis. Awaiting echocardiogram. Aspirin 81 mg once a day Coreg 6.25 mg p.o. twice a day Crestor 40 mg once at night Brilinta 90 mg p.o. twice daily 2. Lipid disorder Lipid panel elevated triglycerides, elevated cholesterol, elevated LDL, HDL relatively normal Crestor 40 mg p.o. nightly Diet modification advocated Dietitian referral to be obtained 3. Hypertension smoking cessation provided Diet modification provided Patient is on both the Coreg and IGNACIO inhibitor started during hospitalization. 4. Impaired glucose tolerance Patient does not have history of diabetes, patient reports family history of diabetes Advocated for lifestyle and diet modifications 5. Smoker Advised patient to stop smoking including risks such as premature aging, worsening heart disease, cancer as well as limiting secondary use his roommate is also a current smoker Patient has failed Chantix in the past. But is open to other avenues for sensation Pulmonary on board help appreciated NicoDerm patch advocate advocated 6. Elevated hemoglobin Patient likely was dehydrated on admission hemoglobin is relatively stable will discontinue him on consult 7. Prophylactic measure Heparin DVT prophylaxis LV apical thrombus? ECHO with Contrast study r/o LV thrombus ordered for tomorrow Discharge plan after the repeat ECHO Objective - Vital Signs/Intake and Output Vital Signs (last 24 hours): Temp Pulse Resp BP Pulse Ox 97.8 F 69 17 123/64 97 07/12/18 00:00 07/12/18 01:00 07/12/18 00:00 07/12/18 00:00 07/12/18 00:00 Intake and Output: 07/12/18 07/12/18 06:59 18:59 Intake Total 0 Balance 0 - Medications Medications: Current Medications Acetaminophen (Tylenol 325mg Tab) 650 mg PO Q6 PRN PRN Reason: Pain, Mild (1-3) Aspirin (Ecotrin) 81 mg PO DAILY [facility] Last Admin: 07/12/18 09:49 Dose: 81 mg Carvedilol (Coreg) 6.25 mg PO BID [facility] Last Admin: 07/12/18 09:50 Dose: 6.25 mg Dextrose (Dextrose 50% Inj) 0 ml IV STAT PRN; Protocol PRN Reason: Hypoglycemia Protocol Dextrose (Glutose 15) 0 gm PO ONCE PRN; Protocol PRN Reason: Hypoglycemia Protocol Famotidine (Pepcid) 20 mg PO BID [facility] Last Admin: 07/12/18 09:49 Dose: 20 mg Glucagon (Glucagen Diagnostic Kit) 0 mg IM STAT PRN; Protocol PRN Reason: Hypoglycemia Protocol Heparin Sodium (Porcine) (Heparin) 5,000 units SC Q12 [facility] Last Admin: 07/11/18 21:26 Dose: 5,000 units Dextrose (Dextrose 5% In Water 1000 Ml) 1,000 mls @ 0 mls/hr IV .Q0M PRN; Protocol PRN Reason: Hypoglycemia Protocol Insulin Human Regular (Novolin R) 0 unit SC ACHS [facility]; Protocol Last Admin: 07/12/18 08:32 Dose: Not Given Losartan Potassium (Cozaar) 25 mg PO DAILY [facility] Last Admin: 07/12/18 09:50 Dose: 25 mg Nicotine (Nicoderm Cq) 1 patch TD DAILY [facility] Last Admin: 07/12/18 09:49 Dose: 1 patch Rosuvastatin Calcium (Crestor) 40 mg PO HS [facility] Last Admin: 07/11/18 21:25 Dose: 40 mg Ticagrelor (Brilinta) 90 mg PO BID [facility] Last Admin: 07/12/18 09:50 Dose: 90 mg - Labs Labs: 07/12/18 05:40 07/12/18 05:40 PT 11.1 SECONDS (9.7-12.2) 07/11/18 02:22 INR 1.0 07/11/18 02:22 APTT 34 SECONDS (21-34) 07/11/18 02:22
--- NOTE | 2018-07-12 13:58 | CP.PCM.PN ---
Subjective - Date & Time of Evaluation Date of Evaluation: 07/12/18 Time of Evaluation: 13:55 - Subjective Subjective: Medical Attending Note: patient seen and examined. Patient denies acute complaints at present. Patient is aware he had a massive heart attack and takes to heart the diet/exercise/smoking cessation. He is scheduled for contrast echo tomorrow. Possible d/c tomorrow. Objective - Vital Signs/Intake and Output Vital Signs (last 24 hours): Temp Pulse Resp BP Pulse Ox 97.8 F 63 13 132/63 94 L 07/12/18 00:00 07/12/18 13:00 07/12/18 13:00 07/12/18 13:00 07/12/18 05:00 Intake and Output: 07/12/18 07/12/18 06:59 18:59 Intake Total 0 Balance 0 - Medications Medications: Current Medications Acetaminophen (Tylenol 325mg Tab) 650 mg PO Q6 PRN PRN Reason: Pain, Mild (1-3) Aspirin (Ecotrin) 81 mg PO DAILY [facility] Last Admin: 07/12/18 09:49 Dose: 81 mg Carvedilol (Coreg) 6.25 mg PO BID [facility] Last Admin: 07/12/18 09:50 Dose: 6.25 mg Dextrose (Dextrose 50% Inj) 0 ml IV STAT PRN; Protocol PRN Reason: Hypoglycemia Protocol Dextrose (Glutose 15) 0 gm PO ONCE PRN; Protocol PRN Reason: Hypoglycemia Protocol Famotidine (Pepcid) 20 mg PO BID [facility] Last Admin: 07/12/18 09:49 Dose: 20 mg Glucagon (Glucagen Diagnostic Kit) 0 mg IM STAT PRN; Protocol PRN Reason: Hypoglycemia Protocol Heparin Sodium (Porcine) (Heparin) 5,000 units SC Q12 [facility] Last Admin: 07/12/18 13:00 Dose: 5,000 units Dextrose (Dextrose 5% In Water 1000 Ml) 1,000 mls @ 0 mls/hr IV .Q0M PRN; Protocol PRN Reason: Hypoglycemia Protocol Insulin Human Regular (Novolin R) 0 unit SC ACHS [facility]; Protocol Last Admin: 07/12/18 12:26 Dose: Not Given Losartan Potassium (Cozaar) 25 mg PO DAILY [facility] Last Admin: 07/12/18 09:50 Dose: 25 mg Nicotine (Nicoderm Cq) 1 patch TD DAILY [facility] Last Admin: 07/12/18 09:49 Dose: 1 patch Rosuvastatin Calcium (Crestor) 40 mg PO HS [facility] Last Admin: 07/11/18 21:25 Dose: 40 mg Ticagrelor (Brilinta) 90 mg PO BID [facility] Last Admin: 07/12/18 09:50 Dose: 90 mg - Labs Labs: 07/12/18 05:40 07/12/18 05:40 PT 11.1 SECONDS (9.7-12.2) 07/11/18 02:22 INR 1.0 07/11/18 02:22 APTT 34 SECONDS (21-34) 07/11/18 02:22 - Constitutional Appears: Non-toxic, No Acute Distress - Head Exam Head Exam: NORMAL INSPECTION - Eye Exam Eye Exam: EOMI - ENT Exam ENT Exam: Mucous Membranes Moist - Respiratory Exam Respiratory Exam: Clear to Ausculation Bilateral, NORMAL BREATHING PATTERN. absent: Rales, Rhonchi, Wheezes - Cardiovascular Exam Cardiovascular Exam: REGULAR RHYTHM, +S1, +S2 - GI/Abdominal Exam GI & Abdominal Exam: Soft, Normal Bowel Sounds. absent: Distended, Firm, Guarding, Rigid, Tenderness, Rebound - Extremities Exam Extremities Exam: absent: Pedal Edema, Tenderness - Neurological Exam Neurological Exam: Alert, Awake, Oriented x3 Neuro motor strength exam: Left Upper Extremity: 5, Right Upper Extremity: 5, Left Lower Extremity: 5, Right Lower Extremity: 5 - Psychiatric Exam Psychiatric exam: Normal Affect, Normal Mood - Skin Skin Exam: Dry, Intact, Normal Color, Warm Attending/Attestation - Attestation I have personally seen and examined this patient.: Yes I have fully participated in the care of the patient.: Yes I have reviewed all pertinent clinical information, including history, physical exam and plan: Yes Notes (Text): Assessment/Plan 1. Acute anterolateral STEMI Cardiology Dr. Brasher on case help appreciated Patient admitted to ICU Per cath report: Left main patent, LAD proximal 95% stenosis, left circumflex patent RCA dominant and patent and LV anterior lateral hypokinesis ejection fraction by 50% EDP 36 with no aortic stenosis. Awaiting echocardiogram. Aspirin 81 mg once a day Coreg 6.25 mg p.o. twice a day Crestor 40 mg once at night Brilinta 90 mg p.o. twice daily Half NS about 70 cc/h until 4:00 today heparin DVT prophylaxis pending official echocardiogram contrast echo tomorrow r/o apical thrombus 2. Lipid disorder Lipid panel elevated triglycerides, elevated cholesterol, elevated LDL, HDL relatively normal Crestor 40 mg p.o. nightly Diet modification advocated Dietitian referral to be obtained 3. Hypertension smoking cessation provided Diet modification provided Patient is on both the Coreg and IGNACIO inhibitor started during hospitalization. 4. Impaired glucose tolerance Patient does not have history of diabetes, patient reports family history of diabetes Advocated for lifestyle and diet modifications 5. Smoker Advised patient to stop smoking including risks such as premature aging, worsening heart disease, cancer as well as limiting secondary use his roommate is also a current smoker Patient has failed Chantix in the past. But is open to other avenues for sensation Pulmonary on board help appreciated NicoDerm patch advocate advocated 6. Elevated hemoglobin Patient likely was dehydrated on admission hemoglobin is relatively stable will discontinue him on consult 7. Prophylactic measure Heparin DVT prophylaxis Disposition: pending contrast echo; pending cardio clearance for discharge. Patient to follow-up with Dr. Brasher and Dr. aFrley
--- NOTE | 2018-07-12 15:22 | CP.PCM.CON ---
History of Present Illness - History of Present Illness History of Present Illness: Pulmonary Consult, Covering Dr Flowers The patient was Seen/interviewed and examined by me at the bedside, Medical records reviewed and Management issues were discussed and formulated with the house staff. Events reviewed Reason for consult: 57 year old male with PMH of HTN, Hypercholesterolemia, DM2 and XIMENA/COPD who presents to ED with worsening chest pain and shortness of breath Admitted with Acute STEMI, Now s/p emergent MALIKA x1 in LAD Past Patient History - Infectious Disease Hx of Infectious Diseases: None - Past Medical History & Family History Past Medical History?: Yes - Past Social History Smoking Status: Heavy Smoker > 10 Cigarettes Daily - CARDIAC Hx Hypertension: Yes - PULMONARY Hx Respiratory Disorders: No - NEUROLOGICAL Hx Neurological Disorder: No - HEENT Hx HEENT Problems: No - RENAL Hx Chronic Kidney Disease: No - ENDOCRINE/METABOLIC Hx Endocrine Disorders: No - HEMATOLOGICAL/ONCOLOGICAL Hx Blood Disorders: No - INTEGUMENTARY Hx Dermatological Problems: No - MUSCULOSKELETAL/RHEUMATOLOGICAL Hx Musculoskeletal Disorders: No Hx Falls: No - GASTROINTESTINAL Hx Gastrointestinal Disorders: No - GENITOURINARY/GYNECOLOGICAL Hx Genitourinary Disorders: No - PSYCHIATRIC Hx Substance Use: No - SURGICAL HISTORY Hx Appendectomy: Yes Other/Comment: when he was young as per patient - ANESTHESIA Hx Anesthesia: Yes Hx Anesthesia Reactions: No Hx Malignant Hyperthermia: No Meds Allergies/Adverse Reactions: Allergies Allergy/AdvReac Type Severity Reaction Status Date / Time No Known Allergies Allergy Verified 07/11/18 02:15 - Medications Medications: Current Medications Acetaminophen (Tylenol 325mg Tab) 650 mg PO Q6 PRN PRN Reason: Pain, Mild (1-3) Aspirin (Ecotrin) 81 mg PO DAILY [facility] Last Admin: 07/12/18 09:49 Dose: 81 mg Carvedilol (Coreg) 6.25 mg PO BID [facility] Last Admin: 07/12/18 09:50 Dose: 6.25 mg Dextrose (Dextrose 50% Inj) 0 ml IV STAT PRN; Protocol PRN Reason: Hypoglycemia Protocol Dextrose (Glutose 15) 0 gm PO ONCE PRN; Protocol PRN Reason: Hypoglycemia Protocol Famotidine (Pepcid) 20 mg PO BID [facility] Last Admin: 07/12/18 09:49 Dose: 20 mg Glucagon (Glucagen Diagnostic Kit) 0 mg IM STAT PRN; Protocol PRN Reason: Hypoglycemia Protocol Heparin Sodium (Porcine) (Heparin) 5,000 units SC Q12 [facility] Last Admin: 07/12/18 13:00 Dose: 5,000 units Dextrose (Dextrose 5% In Water 1000 Ml) 1,000 mls @ 0 mls/hr IV .Q0M PRN; Protocol PRN Reason: Hypoglycemia Protocol Insulin Human Regular (Novolin R) 0 unit SC ACHS [facility]; Protocol Last Admin: 07/12/18 12:26 Dose: Not Given Losartan Potassium (Cozaar) 25 mg PO DAILY [facility] Last Admin: 07/12/18 09:50 Dose: 25 mg Nicotine (Nicoderm Cq) 1 patch TD DAILY [facility] Last Admin: 07/12/18 09:49 Dose: 1 patch Rosuvastatin Calcium (Crestor) 40 mg PO HS [facility] Last Admin: 07/11/18 21:25 Dose: 40 mg Ticagrelor (Brilinta) 90 mg PO BID [facility] Last Admin: 07/12/18 09:50 Dose: 90 mg Results - Vital Signs Recent Vital Signs: Last Vital Signs Temp 97.8 F 07/12/18 00:00 Pulse 63 07/12/18 13:00 Resp 13 07/12/18 13:00 BP 132/63 07/12/18 13:00 Pulse Ox 94 L 07/12/18 05:00 - Labs Result Diagrams: 07/12/18 05:40 07/12/18 05:40 Labs: Laboratory Results - last 24 hr 07/11/18 07/11/18 07/11/18 16:52 20:34 21:22 WBC RBC Hgb Hct MCV MCH MCHC RDW Plt Count MPV Neut % (Auto) Lymph % (Auto) [place] % (Auto) Eos % (Auto) Baso % (Auto) Neut # (Auto) Lymph # (Auto) [place] # (Auto) Eos # (Auto) Baso # (Auto) Sodium Potassium Chloride Carbon Dioxide Anion Gap BUN Creatinine Est GFR ( Amer) Est GFR (Non-Af Amer) POC Glucose (mg/dL) 105 103 Random Glucose Calcium Phosphorus Magnesium Total Bilirubin AST ALT Alkaline Phosphatase Total Creatine Kinase 824 H CK-MB (Mass) 74.2 H Troponin I 25.4000 H* Total Protein Albumin Globulin Albumin/Globulin Ratio 07/12/18 07/12/18 07/12/18 05:40 05:40 07:28 WBC 10.7 RBC 5.63 Hgb 16.3 Hct 48.5 MCV 86.1 MCH 28.9 MCHC 33.5 RDW 14.0 Plt Count 214 MPV 7.8 Neut % (Auto) 58.9 Lymph % (Auto) 32.3 [place] % (Auto) 6.8 Eos % (Auto) 1.5 Baso % (Auto) 0.5 Neut # (Auto) 6.3 Lymph # (Auto) 3.5 [place] # (Auto) 0.7 Eos # (Auto) 0.2 Baso # (Auto) 0.1 Sodium 135 Potassium 4.3 Chloride 104 Carbon Dioxide 24 Anion Gap 12 BUN 20 Creatinine 1.2 Est GFR ( Amer) > 60 Est GFR (Non-Af Amer) > 60 POC Glucose (mg/dL) 85 Random Glucose 94 Calcium 9.1 Phosphorus 2.6 Magnesium 2.0 Total Bilirubin 0.6 AST 158 H ALT 48 Alkaline Phosphatase 73 Total Creatine Kinase CK-MB (Mass) Troponin I Total Protein 6.9 Albumin 4.2 Globulin 2.7 Albumin/Globulin Ratio 1.5
[2018-07-13 06:29] LABS: BASO % 0.3 % (0.0-2.0); EOS # 0.2 K/uL (0.0-0.7); EOS % 2.6 % (0.0-4.0); HEMOGLOBIN 15.9 g/dL (12.0-18.0); LYMPH % 35.9 % (20.0-40.0); MEAN CELL VOLUME 86.6 fL (80.0-94.0); MEAN CORPUSCULAR HEMOGLOBIN 28.9 pg (27.0-31.0); MEAN CORPUSCULAR HGB CONC 33.4 g/dL (33.0-37.0); MONO # 0.7 K/uL (0.0-0.8); MONO % 8.3 % (0.0-10.0); NEUT # 4.5 K/uL (1.8-7.0); NEUT % 52.9 % (50.0-75.0); NRBC % 0.1 % (0.0-2.0); RBC 5.5 Mil/uL (4.40-5.90); RED CELL DISTRIBUTION WIDTH 14.2 % (11.5-14.5); WHITE BLOOD COUNT 8.4 K/uL (4.8-10.8)
[2018-07-13 06:49] LABS: ALB/GLOB RATIO 1.6 (1.0-2.1); ALBUMIN 4.4 g/dL (3.5-5.0); ALT/SGPT 36 U/L (21-72); AST/SGOT 74 U/L (17-59); BLOOD UREA NITROGEN 24 mg/dL (9-20); CALCIUM 9.2 mg/dl (8.6-10.4); GFR NON-AFRICAN AMERICAN > 60
[2018-07-13] MEDS: (Novolin R) Insulin Human Regular 100 units/ml vial SC SCH ×2 (07:35→11:44)
[2018-07-13] MEDS ORDERED: Perflutren Lipid Microsphere 1.5 ML SUS IV ONE (12:07)
--- NOTE | 2018-07-13 14:19 | CP.PCM.PN ---
Subjective - Date & Time of Evaluation Date of Evaluation: 07/13/18 Time of Evaluation: 14:17 - Subjective Subjective: Cardiology Follow Up Patient was seen and examined at bedside. S/P Code heart. Patient denies any chest pain, shortness of breath, or palpitations. Objective - Vital Signs/Intake and Output Vital Signs (last 24 hours): Temp Pulse Resp BP Pulse Ox 97.6 F 64 19 110/70 99 07/13/18 08:00 07/13/18 10:00 07/13/18 08:00 07/13/18 08:00 07/13/18 08:00 - Medications Medications: Current Medications Acetaminophen (Tylenol 325mg Tab) 650 mg PO Q6 PRN PRN Reason: Pain, Mild (1-3) Aspirin (Ecotrin) 81 mg PO DAILY [facility] Last Admin: 07/13/18 09:50 Dose: 81 mg Carvedilol (Coreg) 6.25 mg PO BID [facility] Last Admin: 07/13/18 09:50 Dose: 6.25 mg Dextrose (Dextrose 50% Inj) 0 ml IV STAT PRN; Protocol PRN Reason: Hypoglycemia Protocol Dextrose (Glutose 15) 0 gm PO ONCE PRN; Protocol PRN Reason: Hypoglycemia Protocol Famotidine (Pepcid) 20 mg PO BID [facility] Last Admin: 07/13/18 09:50 Dose: 20 mg Glucagon (Glucagen Diagnostic Kit) 0 mg IM STAT PRN; Protocol PRN Reason: Hypoglycemia Protocol Heparin Sodium (Porcine) (Heparin) 5,000 units SC Q12 [facility] Last Admin: 07/13/18 09:57 Dose: 5,000 units Dextrose (Dextrose 5% In Water 1000 Ml) 1,000 mls @ 0 mls/hr IV .Q0M PRN; Prot ocol PRN Reason: Hypoglycemia Protocol Insulin Human Regular (Novolin R) 0 unit SC ACHS [facility]; Protocol Last Admin: 07/13/18 11:44 Dose: Not Given Losartan Potassium (Cozaar) 25 mg PO DAILY [facility] Last Admin: 07/13/18 09:50 Dose: 25 mg Nicotine (Nicoderm Cq) 1 patch TD DAILY [facility] Last Admin: 07/13/18 09:49 Dose: 1 patch Rosuvastatin Calcium (Crestor) 40 mg PO HS [facility] Last Admin: 07/12/18 21:31 Dose: 40 mg Ticagrelor (Brilinta) 90 mg PO BID [facility] Last Admin: 07/13/18 09:50 Dose: 90 mg - Labs Labs: 07/13/18 06:24 07/13/18 06:24 PT 11.1 SECONDS (9.7-12.2) 07/11/18 02:22 INR 1.0 07/11/18 02:22 APTT 34 SECONDS (21-34) 07/11/18 02:22 - Constitutional Appears: No Acute Distress - Head Exam Head Exam: NORMAL INSPECTION, NORMOCEPHALIC - Eye Exam Eye Exam: EOMI, Normal appearance, PERRL - ENT Exam ENT Exam: Mucous Membranes Moist - Respiratory Exam Respiratory Exam: Clear to Ausculation Bilateral, NORMAL BREATHING PATTERN - Cardiovascular Exam Cardiovascular Exam: +S1, +S2 - GI/Abdominal Exam GI & Abdominal Exam: Soft, Normal Bowel Sounds. absent: Distended, Tenderness - Extremities Exam Extremities Exam: Normal Inspection. absent: Pedal Edema, Tenderness - Neurological Exam Neurological Exam: Alert, Awake, Oriented x3 - Psychiatric Exam Psychiatric exam: Normal Affect, Normal Mood - Skin Skin Exam: Dry, Intact, Normal Color, Warm Assessment and Plan - Assessment and Plan (Free Text) Plan: Anterolateral STEMI s/p PCI in LAD (Code Heart 07/11/18) Hx Hypertension, IGT Imaging: - ECHO: pending official read, concern for apical thrombus - S/P Cardiac Catherization: 1. L Main: Patent 2. LAD: proximal 95% stenosis (Fixed with 3.5 x 18 [place] MALIKA 3. L Cx: Patent 4. RCA: Dominant and patent 5. LV: Anterolateral hypo. EF 50%, EDP 36, No - Repeat ECHO with contrast: ordered to rule out apical thrombus Management: - Continue with ASA, Brilinta, Coreg, Cozaar, Crestor - Pending repeat ECHO with contrast to rule out apical thrombus Case discussed with Gabbie Mcgowan DO, PGY2
--- NOTE | 2018-07-13 14:25 | CARD ---
APPROVED REPORT Date of service: 07/11/2018 EXAM: Two-dimensional and M-mode echocardiogram with Doppler and color Doppler. INDICATION Non STEMI RISK FACTORS Hypertension Hyperlipidemia Diabetes 2D DIMENSIONS IVSd1.7 (0.7-1.1cm)Aortic Root (2D)3.2 (2.0-3.7cm) LVDd5.0 (3.9-5.9cm)PWd1.5 (0.7-1.1cm) LA Ypruyu15 (18-58mL)LVDs2.9 (2.5-4.0cm) FS (%) 41.9 %LVEF (%)72.7 (>50%) LVEF (Galan's)77.59 %IVC0.00 cm M-Mode DIMENSIONS Left Atrium (MM)4.37 (2.5-4.0cm)IVSd1.48 (0.7-1.1cm) Aortic Root2.43 (2.2-3.7cm)LVDd5.11 (4.0-5.6cm) Aortic Cusp Exc.1.94 (1.5-2.0cm)PWd1.32 (0.7-1.1cm) FS (%) 37 %LVDs3.21 (2.0-3.8cm) TAPSE13.64 cmLVEF (%)67 (>50%) Aortic Valve AI P 1/2 Alzw107bt Mitral Valve MV E Rwlenpdq20.4cm/sMV A Xwloqijy69.8cm/sE/A ratio1.5 TDI Lateral E' Peak V6.93cm/sMedial E' Peak V5.51cm/sE/Lateral E'13.2 E/Medial E'16.6 Tricuspid Valve TR Peak Gkoqvhej075cd/sTR Peak Gr.[id number] <Conclusion> normal size lv,ra & rv. la is mildly dilated. moderate degree of lvh with overall lvef of 60-65%. mildly hypokinetic inferoapical wall.poss cad. grade 2 lv diastolic dysfunction. mildly elevated la pressures. normal mitral,tv,aortic & pv. mild ai,pi & tr with normal pulmonary systolic pressures of 27 mm of hg. mild to moderate mr. no pericardial effusion. normal size aortic root & ivc.
--- NOTE | 2018-07-13 15:08 | CARD ---
APPROVED REPORT Date of service: 07/11/2018 EKG Measurement Heart [id number] <Conclusion> Normal sinus rhythm Anteroseptal infarct, age undetermined ST & T wave abnormality, consider lateral ischemia Abnormal ECG
--- NOTE | 2018-07-13 15:08 | CARD ---
APPROVED REPORT Date of service: 07/11/2018 EKG Measurement Heart [id number] <Conclusion> Normal sinus rhythm Possible Left atrial enlargement Left ventricular hypertrophy Anteroseptal infarct, possibly acute Lateral injury pattern ACUTE [place] / STEMI Abnormal ECG
--- NOTE | 2018-07-13 16:18 | CP.PCM.PN ---
Subjective - Date & Time of Evaluation Date of Evaluation: 07/13/18 Time of Evaluation: 16:11 - Subjective Subjective: HOSPITALIST SERVICE Pt seen and examined at bedside, pt sates he is feeling much better since yesterday, pt's only complaint is soreness in the proximal medial thigh on the right side inferior to the access site of cath. Pt denies CP SOB FC [place] Objective - Vital Signs/Intake and Output Vital Signs (last 24 hours): Temp Pulse Resp BP Pulse Ox 98 F 74 18 112/78 97 07/13/18 14:28 07/13/18 14:28 07/13/18 14:28 07/13/18 14:28 07/13/18 14:28 Intake and Output: 07/13/18 07/13/18 06:59 18:59 Intake Total 1200 Balance 1200 - Medications Medications: Current Medications Acetaminophen (Tylenol 325mg Tab) 650 mg PO Q6 PRN PRN Reason: Pain, Mild (1-3) Aspirin (Ecotrin) 81 mg PO DAILY [facility] Last Admin: 07/13/18 09:50 Dose: 81 mg Carvedilol (Coreg) 6.25 mg PO BID [facility] Last Admin: 07/13/18 09:50 Dose: 6.25 mg Dextrose (Dextrose 50% Inj) 0 ml IV STAT PRN; Protocol PRN Reason: Hypoglycemia Protocol Dextrose (Glutose 15) 0 gm PO ONCE PRN; Protocol PRN Reason: Hypoglycemia Protocol Famotidine (Pepcid) 20 mg PO BID [facility] Last Admin: 07/13/18 09:50 Dose: 20 mg Glucagon (Glucagen Diagnostic Kit) 0 mg IM STAT PRN; Protocol PRN Reason: Hypoglycemia Protocol Heparin Sodium (Porcine) (Heparin) 5,000 units SC Q12 [facility] Last Admin: 07/13/18 09:57 Dose: 5,000 units Dextrose (Dextrose 5% In Water 1000 Ml) 1,000 mls @ 0 mls/hr IV .Q0M PRN; Protocol PRN Reason: Hypoglycemia Protocol Losartan Potassium (Cozaar) 25 mg PO DAILY [facility] Last Admin: 07/13/18 09:50 Dose: 25 mg Nicotine (Nicoderm Cq) 1 patch TD DAILY [facility] Last Admin: 07/13/18 09:49 Dose: 1 patch Rosuvastatin Calcium (Crestor) 40 mg PO HS [facility] Last Admin: 12/09/18 21:31 Dose: 40 mg Ticagrelor (Brilinta) 90 mg PO BID [facility] Last Admin: 07/13/18 09:50 Dose: 90 mg - Labs Labs: 07/13/18 06:24 07/13/18 06:24 PT 11.1 SECONDS (9.7-12.2) 07/11/18 02:22 INR 1.0 07/11/18 02:22 APTT 34 SECONDS (21-34) 07/11/18 02:22 - Additional Findings Additional findings: - Constitutional Appears: Non-toxic, No Acute Distress - Head Exam Head Exam: NORMAL INSPECTION - Eye Exam Eye Exam: EOMI - ENT Exam ENT Exam: Mucous Membranes Moist - Respiratory Exam Respiratory Exam: Clear to Ausculation Bilateral, NORMAL BREATHING PATTERN. absent: Rales, Rhonchi, Wheezes - Cardiovascular Exam Cardiovascular Exam: REGULAR RHYTHM, +S1, +S2 - GI/Abdominal Exam GI & Abdominal Exam: Soft, Normal Bowel Sounds. absent: Distended, Firm, Guarding, Rigid, Tenderness, Rebound - Extremities Exam Extremities Exam: absent: Pedal Edema, Tenderness - Neurological Exam Neurological Exam: Alert, Awake, Oriented x3 Neuro motor strength exam: Left Upper Extremity: 5, Right Upper Extremity: 5, Left Lower Extremity: 5, Right Lower Extremity: 5 - Psychiatric Exam Psychiatric exam: Normal Affect, Normal Mood - Skin Skin Exam: Dry, Intact, Normal Color, Warm Assessment and Plan - Assessment and Plan (Free Text) Assessment: 1. Acute anterolateral STEMI Cardiology Dr. Brasher on case help appreciated Patient admitted to ICU Per cath report: Left main patent, LAD proximal 95% stenosis, left circumflex patent RCA dominant and patent and LV anterior lateral hypokinesis ejection fraction by 50% EDP 36 with no aortic stenosis. Awaiting echocardiogram. Aspirin 81 mg once a day Coreg 6.25 mg p.o. twice a day Crestor 40 mg once at night Brilinta 90 mg p.o. twice daily Half NS about 70 cc/h until 4:00 today heparin DVT prophylaxis 07/11 echocardiogram: EF 65%, concern for apical thrombus 07/12 contrast echo: pending official read 2. Lipid disorder Lipid panel elevated triglycerides, elevated cholesterol, elevated LDL, HDL relatively normal Crestor 40 mg p.o. nightly Diet modification advocated Dietitian referral to be obtained 3. Hypertension smoking cessation provided Diet modification provided Patient is on both the Coreg and IGNACIO inhibitor started during hospitalization. 4. Impaired glucose tolerance Patient does not have history of diabetes, patient reports family history of diabetes Advocated for lifestyle and diet modifications 5. Smoker Advised patient to stop smoking including risks such as premature aging, worsening heart disease, cancer as well as limiting secondary use his roommate is also a current smoker Patient has failed Chantix in the past. But is open to other avenues for sensation Pulmonary on board help appreciated NicoDerm patch advocate advocated 6. Elevated hemoglobin Patient likely was dehydrated on admission hemoglobin is relatively stable will discontinue him on consult 7. Prophylactic measure Heparin DVT prophylaxis Disposition: pending official read of contrast echo; pending cardio clearance for discharge. Patient to follow-up with Dr. Brasher and Dr. Miguelito Eaton PGY1 d/w Dr Jahaira Lombardi
--- NOTE | 2018-07-13 17:24 | CARD ---
APPROVED REPORT Date of service: 07/13/2018 EXAM: Two-dimensional echocardiogram with contrast. Other Information Quality : LimitedRhythm : INDICATION R/O LV THROMBUS Mitral Valve E/A ratio0.0 TDI E/Lateral E'0.0E/Medial E'0.0 <Conclusion> Limited study, IV definity Overall low normal left ventricular systolic function. Normal Wll motion. Markedly increased left ventricular thickness. No Doppler.
[2018-07-13 22:27] VITALS: RESP 17
[2018-07-14 02:18] VITALS: PULSE 62
[2018-07-14 02:22] VITALS: TEMP 97.4; O2SAT 98
[2018-07-14 06:46] VITALS: BP 116/68
== END 2018-07-14 08:40 | disposition home or self-care (01) | DRG 853 ==
LOC: C.ER 02:09 → SUPCPDRO 02:09 → C.9I 02:51
PROVIDERS: ADMIT Family Medicine; ATTEND Family Medicine
PROC: 027034Z Dilation of Coronary Artery, One Artery with Drug-eluting Intraluminal Device, Percutaneous Approach (ICD-10-PCS; principal; 2018-07-11)
PROC: 4A023N7 Measurement of Cardiac Sampling and Pressure, Left Heart, Percutaneous Approach (ICD-10-PCS; 2018-07-11)
PROC: B2111ZZ Fluoroscopy of Multiple Coronary Arteries using Low Osmolar Contrast (ICD-10-PCS; 2018-07-11)
DX: I21.09 ST elevation (STEMI) myocardial infarction involving other coronary artery of anterior wall (principal); J44.9 Chronic obstructive pulmonary disease, unspecified; E86.0 Dehydration; Z91.14 Patient's other noncompliance with medication regimen; I10 Essential (primary) hypertension; F17.200 Nicotine dependence, unspecified, uncomplicated; E78.5 Hyperlipidemia, unspecified; E78.1 Pure hyperglyceridemia; E11.9 Type 2 diabetes mellitus without complications; E66.9 Obesity, unspecified; D75.1 Secondary polycythemia; I25.10 Atherosclerotic heart disease of native coronary artery without angina pectoris

== ENCOUNTER 2018-12-29 14:01 | Inpatient (IN) | payer MEDICAID ==
[2018-12-29 14:18] VITALS: BMI 30.6
[2018-12-29] MEDS ORDERED: Sodium Chloride 0.9% 1,000 ML IV SCH (14:30)
--- NOTE | 2018-12-29 14:47 | CT ---
Date of service: 12/29/2018 PROCEDURE: CT HEAD WITHOUT CONTRAST. HISTORY: Code Stroke COMPARISON: From Radiology TECHNIQUE: Axial computed tomography images were obtained through the head/brain without intravenous contrast. Radiation dose: Total exam DLP = 1043.65 mGy-cm. This CT exam was performed using one or more of the following dose reduction techniques: Automated exposure control, adjustment of the mA and/or kV according to patient size, and/or use of iterative reconstruction technique. FINDINGS: HEMORRHAGE: No intracranial hemorrhage. BRAIN: Rausch-white matter differentiation is preserved. There are mild chronic microangiopathic changes. There is no mass, mass effect or abnormal extra-axial fluid collection. There is cystic encephalomalacia in the left posterior inferior cerebellum. There are chronic lacunar infarctions in the right caudate head and posterior basal ganglia. VENTRICLES: The ventricles are normal in size, shape and configuration. CALVARIUM: There is no calvarial fracture or extracranial soft tissue swelling. PARANASAL SINUSES: There is moderate polypoid mucosal thickening and aerosolized secretions in the left maxillary sinus. The remaining included paranasal sinuses are clear. MASTOID AIR CELLS: Predominantly clear. OTHER FINDINGS: None. IMPRESSION: 1. No acute intracranial abnormality. If there is a persistent focal neurologic deficit and an ongoing clinical concern for acute infarction, an MRI of the brain without intravenous contrast would be a more sensitive modality for evaluation of hyperacute/acute ischemic infarction. 2. 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 3. Chronic lacunar infarctions in the right caudate head and right posterior basal ganglia. Important findings were discussed with Dr. Jason law in the ER on 12/29/2018 at 2:40 p.m.
[2018-12-29 14:51] LABS: BASO % 0.8 % (0.0-2.0); EOS # 0.2 K/uL (0.0-0.7); EOS % 2.8 % (0.0-4.0); HEMOGLOBIN 15.3 g/dL (12.0-18.0); LYMPH % 31.3 % (20.0-40.0); MEAN CELL VOLUME 88.4 fL (80.0-94.0); MEAN CORPUSCULAR HEMOGLOBIN 30.3 pg (27.0-31.0); MEAN CORPUSCULAR HGB CONC 34.3 g/dL (33.0-37.0); MEAN PLATELET VOLUME 7.5 fL (7.2-11.7); MONO # 0.6 K/uL (0.0-0.8); MONO % 8.7 % (0.0-10.0); NEUT # 3.7 K/uL (1.8-7.0); NEUT % 56.4 % (50.0-75.0); NRBC % 0.1 % (0.0-2.0); RBC 5.06 Mil/uL (4.40-5.90); WHITE BLOOD COUNT 6.5 K/uL (4.8-10.8)
[2018-12-29 15:00] LABS: PROTHROMBIN TIME 10.9 SECONDS (9.7-12.2)
--- NOTE | 2018-12-29 15:00 | C.PDOC ---
History Of Present Illness 58 y/o male,w/PMhx of HTN and hyperlipidemia, and CAD s/p stents, brought to ER by EMS for evaluation of left sided parasthesias and weakness which began 1 hour [employer]. Patient states that he was at work when he felt his "leg go weak." Patient thinks that he most likely had weakness in his left leg. Currently, patient notes that his symptoms have resolved in the ER. He notes that he took Aspirin and Plavix today. Currently, patient denies having weakness, numbness, CP,SOB, fever, and chills. Time Seen by Provider: 12/29/18 14:10 Chief Complaint (Nursing): Weakness/Neurological Deficit History Per: Patient History/Exam Limitations: no limitations Onset/Duration Of Symptoms: Hrs Current Symptoms Are (Timing): Gone Severity: Moderate Past Medical History Reviewed: Historical Data, Nursing Documentation, Vital Signs Vital Signs: Last Vital Signs Temp 98.2 F 12/29/18 14:17 Pulse 79 12/29/18 14:17 Resp 18 12/29/18 14:17 BP 165/89 H 12/29/18 14:17 Pulse Ox 100 12/29/18 14:17 Primary Care Provider: Miguel Aviles - Medical History PMH: HTN, Hypercholesterolemia Denies: Chronic Kidney Disease Surgical History: Appendectomy, Coronary Stent (x1 jul-2018), Tonsillectomy - [facility] Procedures DILATION OF 1 COR ART WITH DRUG-ELUT INTRA, PERC APPROACH (07/11/18) FLUOROSCOPY OF MULT COR ART USING L OSM CONTRAST (07/11/18) MEASURE OF CARDIAC SAMPL & PRESSURE, L HEART, PERC APPROACH (07/11/18) RESECTION OF APPENDIX, PERCUTANEOUS ENDOSCOPIC APPROACH (12/10/15) Family History: States: No Known Family Hx - Social History Hx Alcohol Use: No Hx Substance Use: No - Immunization History Hx Tetanus Toxoid Vaccination: Yes Hx Influenza Vaccination: Yes Hx Pneumococcal Vaccination: Yes Review Of Systems Except As Marked, All Systems Reviewed And Found Negative. Constitutional: Negative for: Fever, Chills Cardiovascular: Negative for: Chest Pain Respiratory: Negative for: Shortness of Breath Neurological: Positive for: Weakness (currently resolved) Physical Exam - Physical Exam Appears: Non-toxic, No Acute Distress Skin: Normal Color, Warm, Dry Head: Atraumatic, Normacephalic Eye(s): bilateral: Normal Inspection, PERRL, EOMI Nose: Normal Oral Mucosa: Moist Neck: Supple Chest: Symmetrical Cardiovascular: Rhythm Regular Respiratory: Normal Breath Sounds, No Rales, No Rhonchi, No Wheezing Gastrointestinal/Abdominal: Normal Exam, Soft, No Tenderness, No Guarding, No Rebound Neurological/Psych: Oriented x3, Normal Speech, Normal Motor, Normal Sensation ED Course And Treatment - Laboratory Results Result Diagrams: 12/29/18 14:45 12/29/18 14:45 ECG: Interpreted By Me, Viewed By Me ECG Rhythm: Sinus Rhythm Interpretation Of ECG: NSR with non-specific ST/ T wave changes Rate From EC O2 Sat by Pulse Oximetry: 100 (RA) Pulse Ox Interpretation: Normal - Other Rad CXR X-Ray: Viewed By Me, Read By Radiologist Interpretation: Date of service: 12/29/2018. HISTORY: Code Stroke. COMPARISON: 07/11/2018. FINDINGS: LUNGS: The lungs are well inflated and clear. PLEURA: No pleural effusions or pneumothorax. CARDIOVASCULAR: The heart is normal in size. No aortic atherosclerotic calcifications present. OSSEOUS STRUCTURES: Within normal limits for the patient's age. VISUALIZED UPPER ABDOMEN: Normal. OTHER FINDINGS: None. IMPRESSION: No active pulmonary disease. - CT Scan/US CT-Head Other Rad Studies (CT/US): Read By Radiologist, Radiology Report Reviewed CT/US Interpretation: Date of service: 12/29/2018. PROCEDURE: CT HEAD WITHOUT CONTRAST. HISTORY: Code Stroke. COMPARISON: From Radiology. TECHNIQUE: Axial computed tomography images were obtained through the head/brain without intravenous contrast. Radiation dose: Total exam DLP = 1043.65 mGy-cm. This CT exam was performed using one or more of the following dose reduction techniques: Automated exposure control, adjustment of the mA and/or kV according to patient size, and/or use of iterative reconstruction technique. FINDINGS: HEMORRHAGE: No intracranial hemorrhage. BRAIN: Rausch-white matter differentiation is preserved. There are mild chronic microangiopathic changes. There is no mass, mass effect or abnormal extra-axial fluid collection. There is cystic encephalomalacia in the left posterior inferior cerebellum. There are chronic lacunar infarctions in the right caudate head and posterior basal ganglia. VENTRICLES: The ventricles are normal in size, shape and co nfiguration. CALVARIUM: There is no calvarial fracture or extracranial soft tissue swelling. PARANASAL SINUSES: There is moderate polypoid mucosal thickening and aerosolized secretions in the left maxillary sinus. The remaining included paranasal sinuses are clear. MASTOID AIR CELLS: Predomin antly clear. OTHER FINDINGS: None. IMPRESSION: 1. No acute intracranial abnormality. If there is a persistent focal neurologic deficit and an ongoing clinical concern for acute infarction, an MRI of the brain without intravenous contrast would be a more sensitive modality for evaluation of hyperacute/acute ischemic infarction. 2. 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 3. Chronic lacunar infarctions in the right caudate head and right posterior basal ganglia. Important findings were discussed with Dr. Jason law in the ER on 12/29/2018 at. 2:40 p.m. NIHSS Stroke Scale 2 - Date/Time Evaluation Performed Date Performed: 12/29/18 Time Performed: 17:43 When Was NIHSS Performed: Baseline - How Severe is the Stroke Level of Consciousness: 0=Alert LOC to Questions: 0=Both comments correct LOC to commands: 0=Obeys both correctly Best Gaze: 0=Normal Visual: 0=No visual loss Facial: 0=Normal Motor Arm - Left: 0=No drift Motor Arm - Right: 0=No drift Motor Leg - Left: 0=No drift Motor Leg - Right: 0=No drift Limb Ataxia: 0=Absent Sensory: 0=Normal Best Language: 0=No aphasia Dysarthia: 0=Normal articulation Extinction & Inattention (Neglect): 0=Normal, no object Score: 0 rTPA Inclusion/Exclusion - Refusal of Treatment Patient Refused Treatment: No - Inclusion Criteria for Altepase All of the below criteria for inclusion were reviewed: Yes Patient is 18 years or Older: No The Clinical Diagnosis of Ischemic Stroke That is Causing a Potentially Disabling Neurological Deficit: No Time of Onset is Well Established to be Less Than 270 Minute Before Treatment Would Begin: No Risk/Benefit Discussed With Patient/Family Member Present: Yes Medical Decision Making Medical Decision Making: stroke code called all symtoms resolve din er. Plan: --Labs --UA --CT-Head --IV Fluids Updates: 14:38 Case discussed with . has been informed that patient is on Aspirin and Plavix per baseline. resolved not tpa advised on permissive hypertension. 15:40 Patient had focal seizure in ER while is at bedside and patient has been treated with Ativan IV. advised ordering MRI with and without contrast and MRA-Head and Neck. dr najera covering dr aviles accepts. Disposition - Disposition Disposition: HOSPITALIZED Disposition Time: 17:39 Condition: STABLE - Clinical Impression Clinical Impression: Weakness, Numbness, Seizure - Scribe Statement The provider has reviewed the documentation as recorded by the Olivia Alston Provider Attestation: All medical record entries made by the Olivia were at my direction and personally dictated by me. I have reviewed the chart and agree that the record accurately reflects my personal performance of the history, physical exam, medical decision making, and the department course for this patient. I have also personally directed, reviewed, and agree with the discharge instructions and disposition. Decision To Admit - Pt Status Changed To: Hospital Disposition Of: Inpatient - Admit Certification Admit to Inpatient:: After my assessment, the patient will require hospitalization for at least two midnights. This is because of the severity of symptoms shown, intensity of services needed, and/or the medical risk in this patient being treated as an outpatient. - InPatient: Physician Admission Certification: I certify that this patient requires 2 or more midnights of care for the following reason:: ro cva vs seiure - . Bed Request Type: Telemetry Admitting Physician: Donavan Najera Patient Diagnosis: Weakness, Numbness, Seizure
[2018-12-29 15:03] LABS: ALB/GLOB RATIO 1.8 (1.0-2.1); ALBUMIN 4.7 g/dL (3.5-5.0); ALT/SGPT 23 U/L (21-72); AST/SGOT 31 U/L (17-59); BLOOD UREA NITROGEN 24 mg/dL (9-20); CALCIUM 9.3 mg/dl (8.6-10.4); GFR NON-AFRICAN AMERICAN 52; HDL CHOLESTEROL 41 mg/dL (30-70)
--- NOTE | 2018-12-29 15:11 | RAD ---
Date of service: 12/29/2018 HISTORY: Code Stroke COMPARISON: 07/11/2018 FINDINGS: LUNGS: The lungs are well inflated and clear. PLEURA: No pleural effusions or pneumothorax. CARDIOVASCULAR: The heart is normal in size. No aortic atherosclerotic calcifications present. OSSEOUS STRUCTURES: Within normal limits for the patient's age. VISUALIZED UPPER ABDOMEN: Normal. OTHER FINDINGS: None. IMPRESSION: No active pulmonary disease.
[2018-12-29 15:13] LABS: LDL CHOLESTEROL 131 mg/dL (0-129)
[2018-12-29] MEDS ORDERED: Sodium Chloride 0.9% 1,000 ML ONE (15:18)
[2018-12-29 15:26] LABS: URINE BACTERIA RARE (<OCC); URINE BILIRUBIN NEGATIVE (NEGATIVE); URINE BLOOD NEGATIVE (NEGATIVE); URINE CLARITY Clear (Clear); URINE COLOR Straw (YELLOW); URINE GLUCOSE (UA) NORMAL (Normal); URINE LEUKOCYTE ESTERASE NEG Leu/uL (Negative); URINE PROTEIN NEGATIVE (NEGATIVE); URINE UROBILINOGEN NORMAL mg/dL (0.2-1.0)
[2018-12-29] MEDS ORDERED: levETIRAcetam 1,000 MG in Sodium Chloride 0.9% 100 ML IVPB STA (15:33)
--- NOTE | 2018-12-29 15:50 | CP.PCM.CON ---
History of Present Illness - History of Present Illness History of Present Illness: Neurology Consultation Note: Consult requested by Dr. Castillo Mr. Gilbert is a 58-year-old man with a past medical history of CAD, s/p stenting on aspirin/Plavix, who states that he has had several episodes of feeling bilateral leg "wobbliness", mouth heaviness, burning, chest tightness and confusion. He had an episode while I was evaluating him today. His speech became slurred, his left arm came up and had shaking of the arm with twisting of the mouth. This lasted for about 30 seconds, and he was slightly confused/disoriented for about 1-2 minutes afterward. He was given 1 mg of Ativan, and had another episode, given another 1 mg of Ativan and seemed to be improving. I requested 1000 mg of Keppra to be given as well due to the suspicion that these events were actually focal onset seizures that became generalized. Review of Systems - Constitutional Constitutional: As Per HPI - EENT Eyes: absent: As Per HPI, Blind Spots, Blurred Vision, Change in Vision, Decreased Night Vision, Diplopia, Discharge, Dry Eye, Exophthalmos, Floaters, Irritation, Itchy Eyes, Loss of Peripheral Vision, Pain, Photophobia, Requires Corrective Lenses, Sees Flashes, Spots in Vision, Tunnel Vision, Other Visual Disturbances, Loss of Vision, Other Ears: absent: As Per HPI, Decreased Hearing, Ear Discharge, Ear Pain, Tinnitus, Abnormal Hearing, Disequilibrium, Dizziness, Other Nose/Mouth/Throat: absent: As Per HPI, Epistaxis, Nasal Congestion, Nasal Discharge, Nasal Obstruction, Nasal Trauma, Nose Pain, Post Nasal Drip, Sinus Pain, Sinus Pressure, Bleeding Gums, Change in Voice, Dental Pain, Dry Mouth, Dysphagia, Halitosis, Hoarsness, Lip Swelling, Mouth Lesions, Mouth Pain, Odynophagia, Sore Throat, Throat Swelling, Tongue Swelling, Facial Pain, Neck Pain, Neck Mass, Other - Cardiovascular Cardiovascular: absent: As Per HPI, Acrocyanosis, Chest Pain, Chest Pain at Rest, Chest Pain with Activity, Claudication, Diaphoresis, Dyspnea, Dyspnea on Exertion, Edema, Irregular Heart Rhythm, Pain Radiating to Arm/Neck/Jaw, Leg Edema, Leg Ulcers, Lightheadedness, Orthopnea, Palpitations, Paroxysmal Nocturnal Dyspnea, Pedal Edema, Radiating Pain, Rapid Heart Rate, Slow Heart Rate, Syncope, Other - Respiratory Respiratory: absent: As Per HPI, Cough, Dyspnea, Hemoptysis, Dyspnea on Exertion, Wheezing, Snoring, Stridor, Pain on Inspiration, Chest Congestion, Excessive Mucous Production, Change in Mucous Color, Pain with Coughing, Other - Gastrointestinal Gastrointestinal: absent: As Per HPI, Abdominal Pain, Belching, Bloating, Change in Bowel Habits, Change in Stool Character, Coffee Ground Emesis, Constipation, Cramping, Diarrhea, Dyspepsia, Dysphagia, Early Satiety, Excessive Flatus, Fecal Incontinence, Heartburn, Hematemesis, Hematochezia, Loose Stools, Melena, Nausea, Odynophagia, Temesmus, Vomiting, Other - Musculoskeletal Musculoskeletal: absent: As Per HPI, Abnormal Gait, Arthralgias, Atrophy, Back Pain, Deformity, Joint Swelling, Limited Range of Motion, Loss of Height, Muscle Cramps, Muscle Weakness, Myalgias, Neck Pain, Numbness, Radiating Pain into Limb, Stiffness, Tingling, Other - Neurological Neurological: As Per HPI - Psychiatric Psychiatric: absent: As Per HPI, Abnormal Sleep Pattern, Anhedonia, Anxiety, Aud itory Hallucinations, Behavioral Changes, Change in Appetite, Change in Libido, Confusion, Depression, Difficulty Concentrating, Hallucinations, Homicidal Ideation, Hopelessness, Irritability, Memory Loss, Mood Swings, Panic Attacks, Paranoia, Suicidal Ideation, Visual Hallucinations, Tactile Hallucinations, Other - Hematologic/Lymphatic Hematologic: absent: As Per HPI, Easy Bleeding, Easy Bruising, Lymphadenopathy, Other Past Patient History - Infectious Disease Hx of Infectious Diseases: None - Past Medical History & Family History Past Medical History?: Yes - Past Social History Smoking Status: Heavy Smoker > 10 Cigarettes Daily - CARDIAC Hx Hypercholesterolemia: Yes Hx Hypertension: Yes - PULMONARY Hx Respiratory Disorders: No - NEUROLOGICAL Hx Neurological Disorder: No - HEENT Hx HEENT Problems: No - RENAL Hx Chronic Kidney Disease: No - ENDOCRINE/METABOLIC Hx Endocrine Disorders: No - HEMATOLOGICAL/ONCOLOGICAL Hx Blood Disorders: No - INTEGUMENTARY Hx Dermatological Problems: No - MUSCULOSKELETAL/RHEUMATOLOGICAL Hx Musculoskeletal Disorders: No Hx Falls: No - GASTROINTESTINAL Hx Gastrointestinal Disorders: No - GENITOURINARY/GYNECOLOGICAL Hx Genitourinary Disorders: No - PSYCHIATRIC Hx Substance Use: No - SURGICAL HISTORY Hx Appendectomy: Yes Hx Coronary Stent: Yes (x1 jul-2018) Hx Tonsillectomy: Yes - ANESTHESIA Hx Anesthesia: Yes Hx Anesthesia Reactions: No Hx Malignant Hyperthermia: No Meds Allergies/Adverse Reactions: Allergies Allergy/AdvReac Type Severity Reaction Status Date / Time No Known Allergies Allergy Verified 12/29/18 14:34 - Medications Medications: Current Medications Sodium Chloride (Sodium Chloride 0.9%) 1,000 mls @ 100 mls/hr IV .Q10H KAYLEE Last Admin: 12/29/18 15:18 Dose: 100 mls/hr Levetiracetam 1,000 mg/ Sodium (Chloride) 110 mls @ 420 mls/hr IVPB STAT STA Stop: 12/29/18 15:48 Physical Exam - Constitutional Appears: Well - Head Exam Head Exam: ATRAUMATIC, NORMAL INSPECTION, NORMOCEPHALIC - Eye Exam Eye Exam: EOMI, Normal appearance, PERRL Pupil Exam: NORMAL ACCOMODATION, PERRL - ENT Exam ENT Exam: Mucous Membranes Moist, Normal Exam - Neck Exam Neck exam: Positive for: Normal Inspection - Respiratory Exam Respiratory Exam: Clear to Auscultation Bilateral, NORMAL BREATHING PATTERN - Cardiovascular Exam Cardiovascular Exam: REGULAR RHYTHM, +S1, +S2 - GI/Abdominal Exam GI & Abdominal Exam: Normal Bowel Sounds, Soft. absent: Tenderness - Extremities Exam Extremities exam: Positive for: normal inspection - Back Exam Back exam: NORMAL INSPECTION - Neurological Exam Neurological exam: Alert, CN II-XII Intact, Normal Gait, Oriented x3, Reflexes Normal - Psychiatric Exam Psychiatric exam: Normal Affect, Normal Mood - Skin Skin Exam: Dry, Intact, Normal Color, Warm Results - Vital Signs Recent Vital Signs: Last Vital Signs Temp 98.2 F 12/29/18 14:17 Pulse 63 12/29/18 15:11 Resp 20 12/29/18 15:11 BP 137/73 12/29/18 15:11 Pulse Ox 100 12/29/18 15:41 - Labs Result Diagrams: 12/29/18 14:45 12/29/18 14:45 Labs: Laboratory Results - last 24 hr 12/29/18 12/29/18 12/29/18 14:20 14:45 14:45 WBC 6.5 RBC 5.06 Hgb 15.3 Hct 44.7 MCV 88.4 MCH 30.3 MCHC 34.3 RDW 14.0 Plt Count 216 MPV 7.5 Neut % (Auto) 56.4 Lymph % (Auto) 31.3 [place]gs % (Auto) 8.7 Eos % (Auto) 2.8 Baso % (Auto) 0.8 Neut # (Auto) 3.7 Lymph # (Auto) 2.0 [place] # (Auto) 0.6 Eos # (Auto) 0.2 Baso # (Auto) 0.0 PT 10.9 INR 1.0 APTT 36.0 H Sodium Potassium Chloride Carbon Dioxide Anion Gap BUN Creatinine Est GFR ( Amer) Est GFR (Non-Af Amer) POC Glucose (mg/dL) 98 Random Glucose Hemoglobin A1c Calcium Total Bilirubin AST ALT Alkaline Phosphatase Troponin I Total Protein Albumin Globulin Albumin/Globulin Ratio Triglycerides Cholesterol LDL Cholesterol Direct HDL Cholesterol Urine Color Urine Clarity Urine pH Ur Specific [place] Urine Protein Urine Glucose (UA) Urine Ketones Urine Blood Urine Nitrate Urine Bilirubin Urine Urobilinogen Ur Leukocyte Esterase Urine WBC (Auto) Urine RBC (Auto) Urine Bacteria Blood Type 12/29/18 12/29/18 12/29/18 14:45 14:45 14:45 WBC RBC Hgb Hct MCV MCH MCHC RDW Plt Count MPV Neut % (Auto) Lymph % (Auto) [place] % (Auto) Eos % (Auto) Baso % (Auto) Neut # (Auto) Lymph # (Auto) [place] # (Auto) Eos # (Auto) Baso # (Auto) PT INR APTT Sodium 137 Potassium 4.2 Chloride 102 Carbon Dioxide 22 Anion Gap 17 BUN 24 H Creatinine 1.4 Est GFR ( Amer) > 60 Est GFR (Non-Af Amer) 52 POC Glucose (mg/dL) Random Glucose 95 Hemoglobin A1c 6.7 H Calcium 9.3 Total Bilirubin 0.3 AST 31 ALT 23 Alkaline Phosphatase 60 Troponin I 0.0130 Total Protein 7.4 Albumin 4.7 Globulin 2.7 Albumin/Globulin Ratio 1.8 Triglycerides 193 H D Cholesterol 208 H LDL Cholesterol Direct 131 H HDL Cholesterol 41 Urine Color Urine Clarity Urine pH Ur Specific [place] Urine Protein Urine Glucose (UA) Urine Ketones Urine Blood Urine Nitrate Urine Bilirubin Urine Urobilinogen Ur Leukocyte Esterase Urine WBC (Auto) Urine RBC (Auto) Urine Bacteria Blood Type B NEGATIVE 12/29/18 15:08 WBC RBC Hgb Hct MCV MCH MCHC RDW Plt Count MPV Neut % (Auto) Lymph % (Auto) [place] % (Auto) Eos % (Auto) Baso % (Auto) Neut # (Auto) Lymph # (Auto) [place] # (Auto) Eos # (Auto) Baso # (Auto) PT INR APTT Sodium Potassium Chloride Carbon Dioxide Anion Gap BUN Creatinine Est GFR ( Amer) Est GFR (Non-Af Amer) POC Glucose (mg/dL) Random Glucose Hemoglobin A1c Calcium Total Bilirubin AST ALT Alkaline Phosphatase Troponin I Total Protein Albumin Globulin Albumin/Globulin Ratio Triglycerides Cholesterol LDL Cholesterol Direct HDL Cholesterol Urine Color Straw Urine Clarity Clear Urine pH 6.0 Ur Specific [place] 1.014 Urine Protein Negative Urine Glucose (UA) Normal Urine Ketones Negative Urine Blood Negative Urine Nitrate Negative Urine Bilirubin Negative Urine Urobilinogen Normal Ur Leukocyte Esterase Neg Urine WBC (Auto) < 1 Urine RBC (Auto) 1 Urine Bacteria Rare Blood Type Assessment & Plan (1) Seizure Assessment and Plan: I recommend obtaining an MRI of the brain with and without contrast (rule out underlying mass) as well as MRA of the head/neck (evaluate for possible vascular causes). Will order continuous video EEG for further evaluation. Load with Keppra 1000 mg IV now and continue 500 mg PO Q12. Thank you for this consultation. Status: Acute
[2018-12-29] MEDS ORDERED: Dextrose 50% SYRINGE Inj (50 ml) IV PRN (22:00)
[2018-12-29] MEDS ORDERED: Glucagon Recombinant 1 mg Inj IM PRN (22:00)
[2018-12-30 01:21] VITALS: RESP 20
[2018-12-30 07:11] LABS: HDL CHOLESTEROL 33 mg/dL (30-70)
[2018-12-30 07:21] LABS: LDL CHOLESTEROL 133 mg/dL (0-129)
[2018-12-30] MEDS ORDERED: Enoxaparin 40 mg Syringe SC SCH (10:00)
--- NOTE | 2018-12-30 15:04 | CP.PCM.CON ---
<AnujDanielPetros - Last Filed: 12/30/18 14:47> History of Present Illness - History of Present Illness History of Present Illness: PGY2 Cardiology Note for Dr. Brasher Reason for Consult: Code Stroke vs Seizure Patient is a 58 year old male with a past medical history of HTN, DM2, Hypercholesterolemia and CAD s/p LAD stent (07/2018) was brought to the hospital by EMS after patient reported left sided/donnell-oral parasthesias and weakness. He experienced similar symptoms 2 days ago and it lasted approximately 20 seconds then went away. The same symptoms occurred yesterday but lasted for multiple minutes causing the patient to think he was having a stroke, which is why he called 911 . Per neuro documentation, patient experienced a seizure during their examination lasting approximately 30 seconds. Patient denies any previous history of seizures. Denies any chest pain or shortness of breath. Patient was also a Code Heart on 07/11/19. He had a stent placed in LAD ~ 95% stenosis. He never followed up with Dr. Brasher due to reported insurance problems. He follows up with a fur mixer at [facility] but does not remember the name. PMH: HTN, DM2, Hypercholesterolemia and CAD s/p LAD stent (07/11/2018) PSH: appendectomy 2016 Family: mother and father with diabetes Social: current smoker, denies alcohol, denies illicit drug use for the past 10 years, but has history of documented IVDA on (04/06/17). 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 Allergies: NKDA Home Meds: * ASA 81mg PO daily * Bupropin HCl 100mg BID * Carvedilol 6.25mg BID * Crestor 20 PO daily * Losartan 25mg PO daily Review of Systems - Review of Systems All systems: reviewed and no additional remarkable complaints except (as pe HPI) Past Patient History - Infectious Disease Hx of Infectious Diseases: None - Past Medical History & Family History Past Medical History?: Yes - Past Social History Smoking Status: Unknown If Ever Smoked - CARDIAC Hx Hypercholesterolemia: Yes Hx Hypertension: Yes - PULMONARY Hx Respiratory Disorders: No - NEUROLOGICAL Hx Neurological Disorder: No - HEENT Hx HEENT Problems: No - RENAL Hx Chronic Kidney Disease: No - ENDOCRINE/METABOLIC Hx Endocrine Disorders: No - HEMATOLOGICAL/ONCOLOGICAL Hx Blood Disorders: No - INTEGUMENTARY Hx Dermatological Problems: No - MUSCULOSKELETAL/RHEUMATOLOGICAL Hx Musculoskeletal Disorders: No Hx Falls: No - GASTROINTESTINAL Hx Gastrointestinal Disorders: No - GENITOURINARY/GYNECOLOGICAL Hx Genitourinary Disorders: No - PSYCHIATRIC Hx Substance Use: No - SURGICAL HISTORY Hx Appendectomy: Yes Hx Coronary Stent: Yes (x1 jul-2018) Hx Tonsillectomy: Yes - ANESTHESIA Hx Anesthesia: Yes Hx Anesthesia Reactions: No Hx Malignant Hyperthermia: No Meds Allergies/Adverse Reactions: Allergies Allergy/AdvReac Type Severity Reaction Status Date / Time No Known Allergies Allergy Verified 12/29/18 14:34 - Medications Medications: Current Medications Aspirin (Ecotrin) 81 mg PO DAILY [facility] Last Admin: 12/30/18 10:05 Dose: 81 mg Clopidogrel Bisulfate (Plavix) 75 mg PO DAILY [facility] Last Admin: 12/30/18 10:05 Dose: 75 mg Dextrose (Dextrose 50% Inj) 0 ml IV STAT PRN; Protocol PRN Reason: Hypoglycemia Protocol Dextrose (Glutose 15) 0 gm PO ONCE PRN; Protocol PRN Reason: Hypoglycemia Protocol Enoxaparin Sodium (Lovenox) 40 mg SC DAILY [facility] Last Admin: 12/30/18 10:04 Dose: 40 mg Glucagon (Glucagen Diagnostic Kit) 0 mg IM STAT PRN; Protocol PRN Reason: Hypoglycemia Protocol Sodium Chloride (Sodium Chloride 0.9%) 1,000 mls @ 100 mls/hr IV .Q10H [facility] Last Admin: 12/29/18 15:18 Dose: 100 mls/hr Dextrose (Dextrose 5% In Water 1000 Ml) 1,000 mls @ 0 mls/hr IV .Q0M PRN; Protocol PRN Reason: Hypoglycemia Protocol Lorazepam (Ativan) 1 mg IVP ONCE PRN PRN Reason: MRI Losartan Potassium (Cozaar) 25 mg PO DAILY [facility] Last Admin: 12/30/18 10:05 Dose: 25 mg Pneumococcal Polyvalent Vaccine (Pneumovax 23 Vaccine) 0.5 ml IM .ONCE ONE Stop: 12/31/18 10:01 Rosuvastatin Calcium (Crestor) 40 mg PO [facility] Last Admin: 12/29/18 22:01 Dose: Not Given Physical Exam - Constitutional Appears: Non-toxic, No Acute Distress - Head Exam Head Exam: ATRAUMATIC, NORMOCEPHALIC - Eye Exam Eye Exam: Normal appearance - ENT Exam ENT Exam: Mucous Membranes Moist - Neck Exam Neck exam: Negative for: Lymphadenopathy - Respiratory Exam Respiratory Exam: Clear to Auscultation Bilateral, NORMAL BREATHING PATTERN. absent: Accessory Muscle Use, Rales, Rhonchi, Wheezes, Respiratory Distress - Cardiovascular Exam Cardiovascular Exam: REGULAR RHYTHM, +S1, +S2 - GI/Abdominal Exam GI & Abdominal Exam: Soft. absent: Distended, Firm, Guarding, Rigid, Tenderness - Extremities Exam Extremities exam: Negative for: calf tenderness - Neurological Exam Neurological exam: Alert, CN II-XII Intact, Oriented x3 - Psychiatric Exam Psychiatric exam: Normal Affect, Normal Mood - Skin Skin Exam: Dry, Warm Results - Vital Signs Recent Vital Signs: Last Vital Signs Temp 97.9 F 12/30/18 08:00 Pulse 60 12/30/18 12:24 Resp 20 12/30/18 08:00 BP 135/72 12/30/18 08:00 Pulse Ox 98 12/30/18 12:24 - Labs Result Diagrams: 12/29/18 14:45 12/29/18 14:45 Labs: Laboratory Results - last 24 hr 12/29/18 12/29/18 12/29/18 14:45 14:45 14:45 WBC 6.5 RBC 5.06 Hgb 15.3 Hct 44.7 MCV 88.4 MCH 30.3 MCHC 34.3 RDW 14.0 Plt Count 216 MPV 7.5 Neut % (Auto) 56.4 Lymph % (Auto) 31.3 Jack % (Auto) 8.7 Eos % (Auto) 2.8 Baso % (Auto) 0.8 Neut # (Auto) 3.7 Lymph # (Auto) 2.0 Jack # (Auto) 0.6 Eos # (Auto) 0.2 Baso # (Auto) 0.0 PT 10.9 INR 1.0 APTT 36.0 H Sodium 137 Potassium 4.2 Chloride 102 Carbon Dioxide 22 Anion Gap 17 BUN 24 H Creatinine 1.4 Est GFR ( Amer) > 60 Est GFR (Non-Af Amer) 52 POC Glucose (mg/dL) Random Glucose 95 Hemoglobin A1c Calcium 9.3 Total Bilirubin 0.3 AST 31 ALT 23 Alkaline Phosphatase 60 Troponin I 0.0130 Total Protein 7.4 Albumin 4.7 Globulin 2.7 Albumin/Globulin Ratio 1.8 Triglycerides 193 H D Cholesterol 208 H LDL Cholesterol Direct 131 H HDL Cholesterol 41 Urine Color Urine Clarity Urine pH Ur Specific Temple Urine Protein Urine Glucose (UA) Urine Ketones Urine Blood Urine Nitrate Urine Bilirubin Urine Urobilinogen Ur Leukocyte Esterase Urine WBC (Auto) Urine RBC (Auto) Urine Bacteria Blood Type Antibody Screen 12/29/18 12/29/18 12/29/18 14:45 14:45 15:08 WBC RBC Hgb Hct MCV MCH MCHC RDW Plt Count MPV Neut % (Auto) Lymph % (Auto) Jack % (Auto) Eos % (Auto) Baso % (Auto) Neut # (Auto) Lymph # (Auto) Jack # (Auto) Eos # (Auto) Baso # (Auto) PT INR APTT Sodium Potassium Chloride Carbon Dioxide Anion Gap BUN Creatinine Est GFR ( Amer) Est GFR (Non-Af Amer) POC Glucose (mg/dL) Random Glucose Hemoglobin A1c 6.7 H Calcium Total Bilirubin AST ALT Alkaline Phosphatase Troponin I Total Protein Albumin Globulin Albumin/Globulin Ratio Triglycerides Cholesterol LDL Cholesterol Direct HDL Cholesterol Urine Color Straw Urine Clarity Clear Urine pH 6.0 Ur Specific Temple 1.014 Urine Protein Negative Urine Glucose (UA) Normal Urine Ketones Negative Urine Blood Negative Urine Nitrate Negative Urine Bilirubin Negative Urine Urobilinogen Normal Ur Leukocyte Esterase Neg Urine WBC (Auto) < 1 Urine RBC (Auto) 1 Urine Bacteria Rare Blood Type B NEGATIVE Antibody Screen Negative 12/29/18 12/30/18 12/30/18 21:24 01:57 06:21 WBC RBC Hgb Hct MCV MCH MCHC RDW Plt Count MPV Neut % (Auto) Lymph % (Auto) Jack % (Auto) Eos % (Auto) Baso % (Auto) Neut # (Auto) Lymph # (Auto) Jack # (Auto) Eos # (Auto) Baso # (Auto) PT INR APTT Sodium Potassium Chloride Carbon Dioxide Anion Gap BUN Creatinine Est GFR ( Amer) Est GFR (Non-Af Amer) POC Glucose (mg/dL) 76 86 92 Random Glucose Hemoglobin A1c Calcium Total Bilirubin AST ALT Alkaline Phosphatase Troponin I Total Protein Albumin Globulin Albumin/Globulin Ratio Triglycerides Cholesterol LDL Cholesterol Direct HDL Cholesterol Urine Color Urine Clarity Urine pH Ur Specific Temple Urine Protein Urine Glucose (UA) Urine Ketones Urine Blood Urine Nitrate Urine Bilirubin Urine Urobilinogen Ur Leukocyte Esterase Urine WBC (Auto) Urine RBC (Auto) Urine Bacteria Blood Type Antibody Screen 12/30/18 12/30/18 06:44 12:26 WBC RBC Hgb Hct MCV MCH MCHC RDW Plt Count MPV Neut % (Auto) Lymph % (Auto) Jack % (Auto) Eos % (Auto) Baso % (Auto) Neut # (Auto) Lymph # (Auto) Jack # (Auto) Eos # (Auto) Baso # (Auto) PT INR APTT Sodium Potassium Chloride Carbon Dioxide Anion Gap BUN Creatinine Est GFR ( Amer) Est GFR (Non-Af Amer) POC Glucose (mg/dL) 115 H Random Glucose Hemoglobin A1c Calcium Total Bilirubin AST ALT Alkaline Phosphatase Troponin I Total Protein Albumin Globulin Albumin/Globulin Ratio Triglycerides 175 H Cholesterol 190 LDL Cholesterol Direct 133 H HDL Cholesterol 33 Urine Color Urine Clarity Urine pH Ur Specific Temple Urine Protein Urine Glucose (UA) Urine Ketones Urine Blood Urine Nitrate Urine Bilirubin Urine Urobilinogen Ur Leukocyte Esterase Urine WBC (Auto) Urine RBC (Auto) Urine Bacteria Blood Type Antibody Screen Assessment & Plan - Assessment and Plan (Free Text) Plan: Hx of CAD Hypertension Hyperlipidemia Denies any chest pain s/p cardiac cath and emergent LAD MALIKA placement on 07/11/18 - Code Heart * 1. L Main: Patent * 2. LAD: proximal 95% stenosis (Fixed with 3.5 x 18 Bishnu MALIKA) * 3. L Cx: Patent * 4. RCA: Dominant and patent * 5. LV: Anterolateral hypo. EF 50%, EDP 36, No f/u ECHO w/bubble study - pending trop negative x1 Patient does not follow up with Dr. Brasher as an outpatient, and can not remember the name of his fur mixer. Per a picture of the patient's home medication list on his phone, he is currently only taking aspirin once daily. Patient was informed that he needs to be on DAPT for a minimum of 1 year after stent placement. He had his stent placed on 07/11/18 and needs to continue DAPT until 07/11/19. Patient states that he did not know that he was supposed to take any additional medications, but he will let his fur mixer know once he is discharged from the hospital. Patient started on Plavix - will need to continue as outpatient until 07/11/19. Crestor was increased to 40mg PO HS (home dose is 20mg daily) Continue aspirin and losartan Seizure witness by neuro per documentation management as per neruo/primary team Diabetes HgbA1c 6.7 management as per primary Tobacco Abuse Discussed with patient the importance of discontinuing use of cigarettes immediately as he already has known CAD and that continued smoking with further increase his risk for acute TN and . Patient is very dismissive of comments stating, "I'm a nurse. I know, I know. I've practically quit them." Patient does not want to quit entirely at this time. Case discussed with Dr. Anshu Morrell Anuj PGY2 <Mj Brasher - Last Filed: 12/30/18 22:57> Results - Vital Signs Recent Vital Signs: Last Vital Signs Temp 98.2 F 12/30/18 16:00 Pulse 58 L 12/30/18 16:00 Resp 20 12/30/18 16:00 BP 128/61 12/30/18 16:00 Pulse Ox 96 12/30/18 16:00 - Labs Result Diagrams: 12/29/18 14:45 12/29/18 14:45 Labs: Laboratory Results - last 24 hr 12/30/18 12/30/18 12/30/18 01:57 06:21 06:44 POC Glucose (mg/dL) 86 92 Triglycerides 175 H Cholesterol 190 LDL Cholesterol Direct 133 H HDL Cholesterol 33 12/30/18 12/30/18 12:26 16:22 POC Glucose (mg/dL) 115 H 135 H Triglycerides Cholesterol LDL Cholesterol Direct HDL Cholesterol Assessment & Plan - Assessment and Plan (Free Text) Plan: Patient seen and evaluated personally by me. Plan of care d/w the medical detailist and as documented
[2018-12-30 16:05] VITALS: BP 128/61; PULSE 58; TEMP 98.2; O2SAT 96
--- NOTE | 2018-12-30 17:22 | CP.PCM.PN ---
Subjective - Date & Time of Evaluation Date of Evaluation: 12/30/18 Time of Evaluation: 17:17 - Subjective Subjective: Neuro Follow-Up Note: Mr. Gilbret was evaluated this afternoon at bedside. He is eager to go home; states that he cannot miss a day of work and needs to work tomorrow. He has not had any recurrent seizure-like activity, nor has he had any further paresthesias to the left side extremities. He attempted MRI twice today, though states he couldn't tolerate it and is claustrophobic. He states that he feels fine and offers no complaints to me. ROS is unremarkable. microbiological lab technician at bedside now, however, we will cancel this and have it done as outpatient. Objective - Vital Signs/Intake and Output Vital Signs (last 24 hours): Temp Pulse Resp BP Pulse Ox 98.2 F 58 L 20 128/61 96 12/30/18 16:00 12/30/18 16:00 12/30/18 16:00 12/30/18 16:00 12/30/18 16:00 Intake and Output: 12/30/18 12/30/18 06:59 18:59 Intake Total 1200 Output Total 900 Balance 300 - Medications Medications: Current Medications Aspirin (Ecotrin) 81 mg PO DAILY [facility] Last Admin: 12/30/18 10:05 Dose: 81 mg Clopidogrel Bisulfate (Plavix) 75 mg PO DAILY [facility] Last Admin: 12/30/18 10:05 Dose: 75 mg Dextrose (Dextrose 50% Inj) 0 ml IV STAT PRN; Protocol PRN Reason: Hypoglycemia Protocol Dextrose (Glutose 15) 0 gm PO ONCE PRN; Protocol PRN Reason: Hypoglycemia Protocol Enoxaparin Sodium (Lovenox) 40 mg SC DAILY [facility] Last Admin: 12/30/18 10:04 Dose: 40 mg Glucagon (Glucagen Diagnostic Kit) 0 mg IM STAT PRN; Protocol PRN Reason: Hypoglycemia Protocol Sodium Chloride (Sodium Chloride 0.9%) 1,000 mls @ 100 mls/hr IV .Q10H [facility] Last Admin: 12/29/18 15:18 Dose: 100 mls/hr Dextrose (Dextrose 5% In Water 1000 Ml) 1,000 mls @ 0 mls/hr IV .Q0M PRN; Protocol PRN Reason: Hypoglycemia Protocol Lorazepam (Ativan) 1 mg IVP ONCE PRN PRN Reason: MRI Losartan Potassium (Cozaar) 25 mg PO DAILY [facility] Last Admin: 12/30/18 10:05 Dose: 25 mg Pneumococcal Polyvalent Vaccine (Pneumovax 23 Vaccine) 0.5 ml IM .ONCE ONE Stop: 12/31/18 10:01 Rosuvastatin Calcium (Crestor) 40 mg PO HS [facility] Last Admin: 12/29/18 22:01 Dose: Not Given - Labs Labs: 12/29/18 14:45 12/29/18 14:45 PT 10.9 SECONDS (9.7-12.2) 12/29/18 14:45 INR 1.0 12/29/18 14:45 APTT 36.0 SECONDS (21-34) H 12/29/18 14:45 - Constitutional Appears: Well, Non-toxic, No Acute Distress - Head Exam Head Exam: ATRAUMATIC, NORMAL INSPECTION, NORMOCEPHALIC - Eye Exam Eye Exam: EOMI, Normal appearance, PERRL Pupil Exam: NORMAL ACCOMODATION, PERRL - ENT Exam ENT Exam: Mucous Membranes Moist, Normal Exam - Neck Exam Neck Exam: Lymphadenopathy, Normal Inspection - Respiratory Exam Respiratory Exam: NORMAL BREATHING PATTERN - Extremities Exam Extremities Exam: Full ROM, Normal Inspection. absent: Calf Tenderness, Pedal Edema - Neurological Exam Neurological Exam: Alert, Awake, CN II-XII Intact, Normal Gait, Oriented x3, Reflexes Normal Neuro motor strength exam: Left Upper Extremity: 5 (distal 5/5), Right Upper Extremity: 5 (distal 5/5), Left Lower Extremity: 5 (distal 5/5), Right Lower Extremity: 5 (distal 5/5) Additional comments: Follows all commands No dysarthria or aphasia No focal motor or sensory deficits No tremors or abnormal movement Gait observed by me and steady - Psychiatric Exam Psychiatric exam: Normal Affect, Normal Mood - Skin Skin Exam: Normal Color Assessment and Plan (1) New onset seizure Assessment & Plan: Imaging reviewed: -CT Head (12/29/18): 1. No acute intracranial abnormality. If there is a persistent focal neurologic deficit and an ongoing clinical concern for acute infarction, an MRI of the brain without intravenous contrast would be a more sensitive modality for evaluation of hyperacute/acute ischemic infarction. 2. 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 3. Chronic lacunar infarctions in the right caudate head and right posterior basal ganglia. Pt is neurologically stable to be d/c home today. He needs to follow up with Mary Lou Pastrana in the office within 1-2 weeks. I have left him an Rx for an Open Brain MRI with and without BOO for new onset seizure, r/o mass, h/o stroke. He will also have an EEG arranged as outpatient once he sees Dr. Pastrana in the office. Since the pt had a witnessed seizure activity by Dr. Pastrana yesterday, we will continue Keppra 500 mg PO Q12 (I have left a rx for him). I have discussed with him secondary stroke prevention/risk factors as well as seizure precautions. He needs to continue his statin, Plavix and ASA at home. He verbalizes that he will refrain from driving until seen by neuro outpatient. Please note, the pt did not have an MRI brain done here to diagnose him with acute CVA, though he does have chronic ischemic changes on his noncontrast CT Head. I have discussed the above information with the pt at great length and he verbalizes understanding to me regarding further w/u, medications, f/u, and notifying our office for recurrent seizures. Please don't hesitate to contact myself or Dr. Pastrana with any concerns or questions. Thank you for this consultation. Shahla Serna DNP, [employer]MBRELL[employer] REPAIRER d/w Dr. Pastrana Status: Acute
--- NOTE | 2018-12-30 17:23 | CARD ---
APPROVED REPORT Date of service: 12/30/2018 EXAM: Two-dimensional and M-mode echocardiogram with Doppler and color Doppler with bubble study Other Information Quality : GoodRhythm : INDICATION CVA/TIA Cardiac Disease: CAD Echo Enhancing Agent Indication: Rule Out Septal Defect Agent/Amount Used: Agitated Saline Surgery/Intervention Status/Post Intervention: Stent RISK FACTORS Hypertension 2D DIMENSIONS IVSd1.4 (0.7-1.1cm)LVDd5.2 (3.9-5.9cm) PWd1.2 (0.7-1.1cm)LA [id number] (18-58mL) LVDs3.2 (2.5-4.0cm)FS (%) 34.8 % LVEF (%)63.0 (>50%)LVEF (Galan's)59.34 % IVC0.00 cm M-Mode DIMENSIONS RVDd3.81 (2.1-3.2cm)Left Atrium (MM)4.43 (2.5-4.0cm) IVSd1.40 (0.7-1.1cm)Aortic Root2.95 (2.2-3.7cm) LVDd5.17 (4.0-5.6cm)Aortic Cusp Exc.2.14 (1.5-2.0cm) PWd1.37 (0.7-1.1cm)FS (%) 32 % LVDs3.51 (2.0-3.8cm)LVEF (%)60 (>50%) Aortic Valve AI P 1/2 [id number] Mitral Valve MV E Bbixcsge56.0cm/sMV A Qpykiwnf38.3cm/sE/A ratio0.7 TDI Lateral E' Peak V8.80cm/sMedial E' Peak V4.67cm/sE/Lateral E'7.5 E/Medial E'14.1 Tricuspid Valve TR Peak Gygvrbsr129ew/sTR Peak Gr.[id number] LEFT VENTRICLE The left ventricle is normal size. There is mild concentric left ventricular hypertrophy. The left ventricular function is normal. The left ventricular ejection fraction is within the normal range. There is normal LV segmental wall motion. Transmitral Doppler flow pattern is abnormal. RIGHT VENTRICLE The right ventricle is normal size. ATRIA The left atrium is borderline dilated. AORTIC VALVE There is trace to mild aortic regurgitation. MITRAL VALVE Mitral regurgitation is trace to mild. TRICUSPID VALVE There is trace to mild tricuspid regurgitation. <Conclusion> Normal LV systolic function. Diastolic dysfunction. Borderline dilated LA. Trace to mild AR. Trace to mild MR. Trace to mil dTR.
[2018-12-30] MEDS ORDERED: Pneumococcal 23-Valent Vaccine IM ONE (17:30)
--- NOTE | 2018-12-30 22:27 | CP.PCM.HP ---
Present on Admission - Present on Admission Any Indicators Present on Admission: No Past Patient History - Infectious Disease Hx of Infectious Diseases: None - Past Medical History & Family History Past Medical History?: Yes - Past Social History Smoking Status: Unknown If Ever Smoked - CARDIAC Hx Hypercholesterolemia: Yes Hx Hypertension: Yes - PULMONARY Hx Respiratory Disorders: No - NEUROLOGICAL Hx Neurological Disorder: No - HEENT Hx HEENT Problems: No - RENAL Hx Chronic Kidney Disease: No - ENDOCRINE/METABOLIC Hx Endocrine Disorders: No - HEMATOLOGICAL/ONCOLOGICAL Hx Blood Disorders: No - INTEGUMENTARY Hx Dermatological Problems: No - MUSCULOSKELETAL/RHEUMATOLOGICAL Hx Musculoskeletal Disorders: No Hx Falls: No - GASTROINTESTINAL Hx Gastrointestinal Disorders: No - GENITOURINARY/GYNECOLOGICAL Hx Genitourinary Disorders: No - PSYCHIATRIC Hx Substance Use: No - SURGICAL HISTORY Hx Appendectomy: Yes Hx Coronary Stent: Yes (x1 jul-2018) Hx Tonsillectomy: Yes - ANESTHESIA Hx Anesthesia: Yes Hx Anesthesia Reactions: No Hx Malignant Hyperthermia: No Meds Home Medications: Home Medication List Medication Instructions Recorded Confirmed Type levETIRAcetam [Keppra] 500 mg PO Q12 #60 tab 12/30/18 Rx Allergies/Adverse Reactions: Allergies Allergy/AdvReac Type Severity Reaction Status Date / Time No Known Allergies Allergy Verified 12/29/18 14:34 Results - Vital Signs Recent Vital Signs: Last Vital Signs Temp 98.2 F 12/30/18 16:00 Pulse 58 L 12/30/18 16:00 Resp 20 12/30/18 16:00 BP 128/61 12/30/18 16:00 Pulse Ox 96 12/30/18 16:00 - Labs Result Diagrams: 12/29/18 14:45 12/29/18 14:45 Labs: Laboratory Results - last 24 hr 12/30/18 12/30/18 12/30/18 01:57 06:21 06:44 POC Glucose (mg/dL) 86 92 Triglycerides 175 H Cholesterol 190 LDL Cholesterol Direct 133 H HDL Cholesterol 33 12/30/18 12/30/18 12:26 16:22 POC Glucose (mg/dL) 115 H 135 H Triglycerides Cholesterol LDL Cholesterol Direct HDL Cholesterol
--- NOTE | 2018-12-31 08:33 | HP ---
CHIEF COMPLAINT: Dizziness and near syncope. HISTORY OF PRESENT ILLNESS: This is a 58-year-old white male with history of hypertension and hyperlipidemia. He is a smoker with history of coronary artery disease, status post angioplasty and stent. He is compliant with diet, medication. and followup. On the day of admission, he was brought into the emergency room by ambulance with left-sided paresthesias of the left upper extremity that was started an hour prior to the admission. According to patient, he was working at home and he felt his leg got weak. The patient thinks that it was most likely the left leg and he sat down and the patient by the time came to emergency room was feeling normal. The patient denies any blurring of vision or any loss of vision. The patient had lightheadedness and the patient had paresthesia of the left upper extremity. The patient denies any chest pain or palpitation. The patient denies any polyuria, polydipsia, or polyphagia. He denies any history of hematuria or pyuria. He denies any sneezing, itchy eyes, or itchy nose. There is no history of cough, sore throat, or runny nose. He denied any history of loss of hearing or vision, loss of smell. He denies any involuntary movements of any of his extremities. He denied having any difficulty walking before and after this incident. This incident was short lived. ALLERGIES: UNKNOWN. CURRENT MEDICATIONS: Crestor, Cozaar, Plavix, Ecotrin, Keppra. SOCIAL HISTORY: He is smoker, non-EtOH user. FAMILY HISTORY: Negative for stroke in premature age. PHYSICAL EXAMINATION: GENERAL: This is a middle-aged male, in no distress. He is ambulating. VITAL SIGNS: Blood pressure 135/72, pulse 53, respiratory rate 20, temperature 97. SKIN: There is no bruises, no purpura, no petechiae. HEENT: Atraumatic, normocephalic. Negative pallor. Negative jaundice. Extraocular movements are intact. NECK: Supple. No JVD. No lymph node. No thyromegaly. No carotid bruits. CHEST WALL: Bilateral symmetrical expansion. No tenderness. LUNGS: Clear. No rales. No rhonchi. CARDIOVASCULAR SYSTEM: PMI is not localized. S1, S2, plus S3 positive. ABDOMEN: Soft and nontender. Bowel sounds are positive. RECTAL: Enlarged prostate. . No bleeding. EXTREMITIES: No clubbing, cyanosis, or edema. CENTRAL NERVOUS SYSTEM: Awake, alert, oriented x3. Cranial nerves II through XII are normal. Power 5/5 x4. Plantars are downgoing. Negative Romberg. ASSESSMENT: 1. Dizziness, near syncope, transient ischemic attack, rule out cerebrovascular accident. 2. Hypertension. 3. Hyperlipidemia. 4. Beta-kaylan induced bradycardia. PLAN: Admit. Discontinue Coreg. Continue current medications, neuro checks. The patient refused to stay further. Since he is medically stable, he was then cleared for discharge and the patient will be followed up outpatient by Dr. Pastrana. Donavan Najera MD
== END 2018-12-30 18:24 | disposition home or self-care (01) | DRG 890 ==
LOC: C.ER 14:01 → C.9E 16:14 → C.6T 17:20 → C.9E 17:28 → C.5S 18:27
PROVIDERS: ADMIT Internal Medicine; ATTEND Internal Medicine
DX: G40.89 Other seizures (principal); G93.89 Other specified disorders of brain; I10 Essential (primary) hypertension; I25.10 Atherosclerotic heart disease of native coronary artery without angina pectoris; Z86.73 Personal history of transient ischemic attack (TIA), and cerebral infarction without residual deficits; Z79.02 Long term (current) use of antithrombotics/antiplatelets; F17.200 Nicotine dependence, unspecified, uncomplicated; E78.5 Hyperlipidemia, unspecified; E11.9 Type 2 diabetes mellitus without complications; F40.240 Claustrophobia; Z95.5 Presence of coronary angioplasty implant and graft